=== PATIENT | male | born 1985 | race Caucasian/White ===

== ENCOUNTER 2022-09-17 11:37 | Inpatient (IN) ==
[2022-09-17] MEDS ORDERED: SODIUM CHLORIDE 0.9% 1000ML 1,000 ML IV ONE ×2 (12:00→13:00)
--- NOTE | 2022-09-17 12:03 | Emergency Department Note ---
Impression & Plan Acute hemorrhagic colitis, Anemia, WILMER (acute kidney injury), Acute dehydration ED Provider Note Name: GEMMA BOJORQUEZ Age: 37 Sex: M Arrives Via: Walk-In Informant: Patient ED Provider: Rommel Rollins MD Chief Complaint: Illness Impression: As per impressions above Medical Decision Makin-year-old gentleman without significant past medical history arrives after 2 months of worsening diarrhea and bloody stools. Rapidly worsening to the point where he is now getting lightheaded and tachycardic. He was seen by GI today who advised to come to the emergency room. On examination he has diffuse lower abdominal tenderness palpation does note some worse in the right lower quadrant. He is hypotensive and tachycardic however with laying flat his blood pressure is much improved. He was empirically given some IV fluids with vast improvement in his symptoms but while still tachycardic was given a second liter IV fluids as well. His laboratory work-up reveals he is quite anemic with a hemoglobin of 8 but without significant past medical history and his blood pressure improved we will hold off on transfusion at this time. He has mild leukocytosis without fever. This could be stress versus infectious versus dehydration related. Given the abdominal tenderness palpation a CT was obtained which reveals a diffuse colitis infectious versus inflammatory. Without fevers or other findings I do not feel he is currently septic at this time. I will note that his creatinine is mildly elevated at 1.6 but given the hemorrhagic symptoms I did think that a IV contrast CT was indicated but this is further reason for giving IV fluids. Extensive stool testing was obtained which is negative for COVID and other PCR pathology. He has a positive blood type though we will hold off on transfusion at this time. Prior Medical Record and Triage/Nursing Notes reviewed by Me Additional history obtained from gastroenterology team Differentials:Diverticulosis, AVM, coagulopathy, colitis, inflammatory bowel disease, malignancy, Barb-Gray tear, esophagitis, peptic ulcer disease, variceal bleed, gastritis, epistaxis, fissure, hemorrhoids, as well as other pathologies. Vital Signs: reviewed and remarkable for tachycardia Interventions: Normal saline bolus 2 L IV, Protonix 80 mg IV, Cipro 400 mg IV, Flagyl 500 mg IV Labs:Reviewed and remarkable for mildly elevated WBC, blast cells 2%, hemoglobin 8, platelets 700 Imaging:CT of the abdomen pelvis with IV contrast reveals diffuse colitis as per radiology Consults:Discussed with Dr. Colbert of the pathology department. He feels that the blood smear is consistent with infectious etiology of the abnormalities rather than evidence of leukemia. Discussed with Dr. Yanez of GI who advises hospitalization with IV Cipro Flagyl and close monitoring and they will evaluate further this afternoon. Dr. Nascimento of the [facility] was consulted and he will manage patient further. Plan: Disposition:Hospitalization. Condition: Good History of Present Illness:37-year-old male arrives for evaluation of illness. Patient notes 3 months of diarrhea. It initially started with a sinus infection after cleaning out a rodent and feces infested porch. Patient states he has been feeling very fatigued and exhausted. The last 2 weeks worsening diarrhea and notes some increased blood in it. Notes diarrhea is watery brown but does have blood in it periodically. No large clots of blood noticed. He states he is getting very lightheaded with standing recently. Worse with any exertion better with rest. He was feeling so ill he is been taking Motrin and baby aspi rin last few days. Denies any vomiting blood. Does note some mild diffuse abdominal cramping radiating to RLQ. And exertion makes worse rest makes better. Patient does note unintended weight loss recently as well. Denies any falls, trauma, injuries. Denies any chest pain, shortness of breath, fevers, chills, headache, neck pain, leg swelling, bruising/other bleeding, urinary symptoms or other concerning signs or symptoms. He does note that his urine has been much darker recently. ROS: See above HPI for pertinent positives & negatives. A total of 10 systems reviewed and were otherwise negative. Past Medical History:Healthy no past medical history Past Surgical History:No previous surgeries Family History:Denies any bleeding disorders, Crohn's disease or ulcerative colitis disease Social History:Self-employed, contractor, single parent, no drugs, no alcohol in 5+ years Home Medications:No daily medications Allergies:nkda Vitals:Blood Pressure: 102/64, Pulse 121, RR 20, T 36.6C, O2 100% on RA Physical Exam: GENERAL: Patient is unwell appearing and in mild distress. Dry EYES: pale conjunctiva, unremarkable pupils. ENT: Mucous membranes dry, no nasal congestion. NECK: No masses appreciated, nomeningismus, trachea is midline. RESPIRATORY: No dyspnea. Clear to auscultation and equal bilaterally. No wheeze, no rhonchi. CARDIOVASCULAR: Tachy.No murmurs, rubs, gallops appreciated. GASTROINTESTINAL: Abdomen soft, non-tender, no peritonitis.Bowel sounds positive.No masses appreciated. BACK: No midline tenderness, no CVA tenderness EXTREMITIES: Normal motion all extremities, no cyanosis, no edema. NEUROLOGIC: Alert and oriented, no acute motor or sensory deficits, no focal weakness, cranial nerves grossly intact. SKIN: No rash, no jaundice, no diaphoresis. PSYCH: Appropriate GCS: 15 ED Course: Times/Reassessments: Patient is vastly improved with IV fluids. He is feeling much better he is comfortable and vital signs have improved significantly. He is agreeable to hospitalization. I will note there were multiple repeat evaluations of patient throughout his stay while managing multiple different consultants and discussions of testing/plan Rommel Rollins MD Past Med/Surg History Family History Denies family history of Crohn's disease Colorectal cancer Ulcerative colitis Social History Smoking Status: Never smoker Hx Alcohol Use: No Hx Substance Use: No current occupational status: employed Feels Safe at Home: Yes Allergies Allergies Allergy/AdvReac Type Severity Reaction Status Date / Time No Known Allergies Allergy Verified 09/17/22 16:05 Home Meds Home Medications Medication Instructions Recorded Confirmed aspirin 81 mg tablet,delayed 81 mg PO DAILY 09/17/22 09/17/22 release cholecalciferol (vitamin D3) 125 125 mcg PO DAILY 09/17/22 09/17/22 mcg (5,000 unit) tablet (Vitamin D3) ferrous sulfate 325 mg (65 mg 325 mg PO DAILY 09/17/22 09/17/22 iron) tablet (iron) ibuprofen 200 mg tablet 200 mg PO DAILY 09/17/22 09/17/22 vitamin B complex 1 tab PO DAILY 09/17/22 09/17/22 Results & Data (ED) Vital Signs Vital Signs - 24 hr 09/17/22 11:38 09/17/22 11:46 09/17/22 13:38 Temperature 36.6 C Temperature Source Temporal Artery Scan Pulse Rate 121 H Pulse Rate [Left Finger] 121 H 101 H Pulse Rhythm [Left Finger] Regular Pulse Strength [Left Finger] Normal Respiratory Rate 20 15 Respiratory Effort / Characteristics Non-Labored Spontaneous Respiratory Depth Normal Normal Blood Pressure 102/64 Blood Pressure [Left Arm] 108/63 Blood Pressure Mean 76 Blood Pressure Mean [Left Arm] 78 Pulse Oximetry 100 98 Oxygen Delivery Method Room Air Room Air Sepsis Recent Fever Within 48 Hours No Sepsis New/Unexplained Change in Mental Status No Sepsis Action Taken by Nursing No Action Required 09/17/22 15:40 Temperature Temperature Source Pulse Rate Pulse Rate [Left Finger] 117 H Pulse Rhythm [Left Finger] Regular Pulse Strength [Left Finger] Respiratory Rate 19 Respiratory Effort / Characteristics Non-Labored Respiratory Depth Normal Blood Pressure Blood Pressure [Left Arm] Blood Pressure Mean Blood Pressure Mean [Left Arm] Pulse Oximetry 96 Oxygen Delivery Method Room Air Sepsis Recent Fever Within 48 Hours Sepsis New/Unexplained Change in Mental Status Sepsis Action Taken by Nursing Laboratory Data Result diagrams: 09/17/22 11:57 09/17/22 11:57 Lab Results 09/17/22 09/17/22 09/17/22 Range/Units 11:57 11:57 11:57 WBC 14.25 H (4.8-10.8) K/ul RBC 3.19 L (4.63-6.08) M/uL Hgb 8.2 L (14.0-18.0) g/dl POC Hgb (14.0-18.0) g/dl Hct 25.6 L (40.1-51.0) % POC Hct (42-52) % MCV 80.3 (80.0-100.0) fL MCH 25.7 (25.0-34.0) pg MCHC 32.0 (32.0-36.0) g/dL RDW Std Deviation 41.9 (36.4-46.3) fL RDW Coeff of Cipriano 14.6 H (11.5-14.5) % Plt Count 776 H (130-400) K/uL MPV 8.9 L (9.4-12.4) fL Absolute Nucleated RBC 0.04 H (0-0) K/uL Nucleated RBC % (auto) 0.3 % Neutrophils % (Manual) 66 % Lymphocytes % (Manual) 16 % Monocytes % (Manual) 7 % Eosinophils % (Manual) 4 % Metamyelocytes % (Man) 3 % Myelocytes % (Man) 1 % Promyelocytes % (Man) 1 % Blast Cells % (Manual) 2 % Neutrophils # (Manual) 9.41 H (1.4-6.5) K/uL Lymphocytes # (Manual) 2.28 (1.2-3.4) K/uL Monocytes # (Manual) 1.00 H (0.24-0.82) K/uL Eosinophils # (Manual) 0.57 H (0-0.50) K/uL Metamyelocytes # (Man) 0.43 H (0-0) K/uL Myelocytes # (Manual) 0.14 H (0-0) K/uL Promyelocytes # (Man) 0.14 H (0-0) K/uL Blast Cells # (Man) 0.29 H (0-0) K/uL Blood Smear Review Toxic Vacuolation 1+ Dohle Bodies 1+ Polychromasia 1+ PT 11.4 (9.0-12.0) Seconds INR 1.1 (0.9-1.1) APTT 28.5 (21.0-31.0) Seconds PTT Ratio 1.0 POC Sodium (135-144) mmol/L Sodium 132 L (136-145) mmol/L POC Potassium (3.3-5.0) mmol/L Potassium 4.6 (3.5-5.1) mmol/L POC Chloride (101-112) mmol/L Chloride 98 (98-107) mmol/L Carbon Dioxide 26 (21-32) mmol/L POC Total CO2 (24-31) mmol/L Anion Gap 8 (3-11) POC Anion Gap (16-25) mmol/L POC BUN (7-18) mg/dl BUN 24 H (6-23) mg/dl Creatinine 1.57 H (0.6-1.4) mg/dl POC Creatinine (0.6-1.3) mg/dl Est Cr Clr Drug Dosing 69.1 ml/min Est GFR ( Amer) 64.3 ml/min Est GFR (Non-Af Amer) 55.5 ml/min BUN/Creatinine Ratio 15.3 (10-20) Glucose 106 H (70-99(Fasting)) mg/dl POC Glucose (other) (70-99) mg/dl Calcium 8.1 L (8.5-10.1) mg/dl POC Ioniz Calcium Piper (1.12-1.32) mmol/l Magnesium 1.9 (1.7-2.4) mg/dl Total Bilirubin 0.4 (0.2-1.0) mg/dl Direct Bilirubin 0.1 (0-0.2) mg/dl AST 23 (13-39) U/L ALT 22 (7-52) U/L Alkaline Phosphatase 22 L (34-104) U/L Troponin I High Sens 6.6 (0-20) pg/ml Total Protein 5.7 L (6.0-8.3) gm/dl Albumin 2.5 L (3.4-5.0) gm/dl Stl C. cayetanensis PCR (NotDetected) Stool Rotavirus A PCR (NotDetected) Stl Adenov F 40/41 PCR (NotDetected) Stool Astrovirus (PCR) (NotDetected) Stool Campylobacter PCR (NotDetected) Stl C. diff Tox B Gene (Neg) Stool Cryptosporidium PCR (NotDetected) Stl E.coli Shiga Tox PCR (NotDetected) Stl Enterotoxigenic E PCR (NotDetected) Stool EPEC (PCR) (NotDetected) Stool EAEC (PCR) (NotDetected) Stl E. histolytica PCR (NotDetected) Stool Giardia Lamblia PCR (NotDetected) Stool Salmonella PCR (NotDetected) Stool Sapovirus (PCR) (NotDetected) Stl P. shigelloides PCR (NotDetected) Stl Shigella/EIEC PCR (NotDetected) St Y.enterocolitica PCR (NotDetected) Stool Vibrio (PCR) (NotDetected) Stl Vibrio cholerae PCR (NotDetected) Stl Norovirus GI/GII PCR (NotDetected) Blood Type Antibody Screen 09/17/22 09/17/22 09/17/22 Range/Units 12:03 12:06 Unknown WBC (4.8-10.8) K/ul RBC (4.63-6.08) M/uL Hgb (14.0-18.0) g/dl POC Hgb 8.8 L (14.0-18.0) g/dl Hct (40.1-51.0) % POC Hct 26 L (42-52) % MCV (80.0-100.0) fL MCH (25.0-34.0) pg MCHC (32.0-36.0) g/dL RDW Std Deviation (36.4-46.3) fL RDW Coeff of Cipriano (11.5-14.5) % Plt Count (130-400) K/uL MPV (9.4-12.4) fL Absolute Nucleated RBC (0-0) K/uL Nucleated RBC % (auto) % Neutrophils % (Manual) % Lymphocytes % (Manual) % Monocytes % (Manual) % Eosinophils % (Manual) % Metamyelocytes % (Man) % Myelocytes % (Man) % Promyelocytes % (Man) % Blast Cells % (Manual) % Neutrophils # (Manual) (1.4-6.5) K/uL Lymphocytes # (Manual) (1.2-3.4) K/uL Monocytes # (Manual) (0.24-0.82) K/uL Eosinophils # (Manual) (0-0.50) K/uL Metamyelocytes # (Man) (0-0) K/uL Myelocytes # (Manual) (0-0) K/uL Promyelocytes # (Man) (0-0) K/uL Blast Cells # (Man) (0-0) K/uL Blood Smear Review Toxic Vacuolation Dohle Bodies Polychromasia PT (9.0-12.0) Seconds INR (0.9-1.1) APTT (21.0-31.0) Seconds PTT Ratio POC Sodium 132 L (135-144) mmol/L Sodium (136-145) mmol/L POC Potassium 4.5 (3.3-5.0) mmol/L Potassium (3.5-5.1) mmol/L POC Chloride 95 L (101-112) mmol/L Chloride (98-107) mmol/L Carbon Dioxide (21-32) mmol/L POC Total CO2 26 (24-31) mmol/L Anion Gap (3-11) POC Anion Gap 17.0 (16-25) mmol/L POC BUN 25 H (7-18) mg/dl BUN (6-23) mg/dl Creatinine (0.6-1.4) mg/dl POC Creatinine 1.9 H (0.6-1.3) mg/dl Est Cr Clr Drug Dosing ml/min Est GFR ( Amer) ml/min Est GFR (Non-Af Amer) ml/min BUN/Creatinine Ratio (10-20) Glucose (70-99(Fasting)) mg/dl POC Glucose (other) 107 H (70-99) mg/dl Calcium (8.5-10.1) mg/dl POC Ioniz Calcium Piper 1.16 (1.12-1.32) mmol/l Magnesium (1.7-2.4) mg/dl Total Bilirubin (0.2-1.0) mg/dl Direct Bilirubin (0-0.2) mg/dl AST (13-39) U/L ALT (7-52) U/L Alkaline Phosphatase (34-104) U/L Troponin I High Sens (0-20) pg/ml Total Protein (6.0-8.3) gm/dl Albumin (3.4-5.0) gm/dl Stl C. cayetanensis PCR Not Detected (NotDetected) Stool Rotavirus A PCR Not Detected (NotDetected) Stl Adenov F 40/41 PCR Not Detected (NotDetected) Stool Astrovirus (PCR) Not Detected (NotDetected) Stool Campylobacter PCR Not Detected (NotDetected) Stl C. diff Tox B Gene Negative Cdiff Gene (Neg) Stool Cryptosporidium PCR Not Detected (NotDetected) Stl E.coli Shiga Tox PCR Not Detected (NotDetected) Stl Enterotoxigenic E PCR Not Detected (NotDetected) Stool EPEC (PCR) Not Detected (NotDetected) Stool EAEC (PCR) Not Detected (NotDetected) Stl E. histolytica PCR Not Detected (NotDetected) Stool Giardia Lamblia PCR Not Detected (NotDetected) Stool Salmonella PCR Not Detected (NotDetected) Stool Sapovirus (PCR) Not Detected (NotDetected) Stl P. shigelloides PCR Not Detected (NotDetected) Stl Shigella/EIEC PCR Not Detected (NotDetected) St Y.enterocolitica PCR Not Detected (NotDetected) Stool Vibrio (PCR) Not Detected (NotDetected) Stl Vibrio cholerae PCR Not Detected (NotDetected) Stl Norovirus GI/GII PCR Not Detected (NotDetected) Blood Type A Positive Antibody Screen NEGATIVE Administered Medications Ciprofloxacin (Cipro / D5w) 400 mg in 200 mls @ 100 mls/hr IV NOW STA; Protocol Stop: 09/17/22 16:53 Last Admin: 09/17/22 15:09 Dose: 100 mls/hr Documented By: KV Discontinued Medications Sodium Chloride (Nss 1000ml) 1,000 mls @ 999 mls/hr IV .Q1H1M ONE Stop: 09/17/22 13:00 Last Infusion: 09/17/22 13:21 Dose: 0 mls/hr Documented By: Admin: 09/17/22 12:11 Dose: 999 mls/hr Documented By: KV Pantoprazole Sodium 80 mg/ (Dextrose) 100 mls @ 400 mls/hr IV ONE STA Stop: 09/17/22 13:04 Last Infusion: 09/17/22 14:10 Dose: 0 mls/hr Documented By: Admin: 09/17/22 13:22 Dose: 400 mls/hr Documented By: KV Sodium Chloride (Nss 1000ml) 1,000 mls @ 999 mls/hr IV .Q1H1M ONE Stop: 09/17/22 14:00 Last Infusion: 09/17/22 13:22 Dose: 0 mls/hr Documented By: Admin: 09/17/22 13:21 Dose: 999 mls/hr Documented By: KV Metronidazole (Flagyl) 500 mg in 100 mls @ 100 mls/hr IV NOW STA Stop: 09/17/22 15:53 Last Admin: 09/17/22 15:33 Dose: 100 mls/hr Documented By: KV Ioversol (Optiray 350 100ml) 88 ml IV ONCE ONE Stop: 09/17/22 13:07 Last Admin: 09/17/22 13:07 Dose: 88 ml Documented By: [facility] Imaging Data Radiologist's Impression: Abdomen/Pelvis CT 09/17/22 12:[address] WITH IV CONTRAST CT DOSE: 310.01 mGy.cm HISTORY: Acute periumbilical and right lower quadrant abdominal pain with rectal bleeding RLQ pain, rectal bleeding TECHNIQUE: Multiaxial CT images of the abdomen and pelvis were performed following the IV administration of 88 cc of Optiray, A dose lowering technique was utilized adhering to the principles of ALARA. COMPARISON STUDY: None. FINDINGS: Limited exam secondary to paucity of Intra-abdominal fat. Clear lung bases. No pneumatosis or pneumoperitoneum. Unremarkable spleen, pancreas and adrenal glands. Mildly contracted gallbladder. Mild periportal edema may be secondary to overhydration. The liver is prominent in size. Patency of the hepatic and portal veins. Unremarkable right kidney. There are 2 nonobstructing calculi of the left kidney measuring up to 3 mm. No ureteral calculi or hydronephrosis. Unremarkable urinary bladder with mild wall thickening. Prostate is upper limits of normal in size with central calcifications. Aorta and IVC are unremarkable. No lymphadenopathy identified. No bowel obstruction. There is wall thickening with mucosal hyperemia involving the entirety of the colon and rectum. There is associated pericolonic inflammation along with intraluminal air-fluid levels. There is a punctate calcification noted within the dependent cecum. The appendix is not definitively seen. Prominent lymph nodes of the right lower quadrant mesentery. Mesenteric edema with trace ascites. Mild generalized body wall edema. No acute fracture. IMPRESSION: 1. Limited exam without the use of enteric contrast. 2. Diffuse wall thickening throughout the colon and rectum compatible with a nonspecific proctocolitis, likely infectious or inflammatory. Air-fluid levels suggests associated diarrheal illness 3. The appendix is not definitively seen. 4. Prominent lymph nodes of the right lower quadrant mesentery are favored to be reactive. ACT 112: Negative or not required by law. The above report was generated using voice recognition software. It may contain grammatical, syntax or spelling errors. Electronically signed by: Enio Villa M.D. 09/17/2022 1:37 PM Discharge Plan Visit Data Chief Complaint: Referred by Doctor Stated Complaint: [facility]ALS ED Provider: Rommel Rollins Discharge Problem: Acute hemorrhagic colitis, Anemia, WILMER (acute kidney injury), Acute dehydration Forms Stand Alone Forms: [employer] Prescriptions Prescriptions: No Action aspirin 81 mg Tablet,Delayed Release (Dr/Ec) 81 mg PO DAILY ferrous sulfate [iron] 325 mg (65 mg iron) Tablet 325 mg PO DAILY ibuprofen 200 mg Tablet 200 mg PO DAILY vitamin B complex Tablet 1 tab PO DAILY cholecalciferol (vitamin D3) [Vitamin D3] 125 mcg (5,000 unit) Tablet 125 mcg PO DAILY Referrals Referrals: Unknown,Unknown [Primary Care Provider] -
[2022-09-17 12:14] LABS: Hematocrit (blood only) 25.6 % (40.1-51.0); Hemoglobin 8.2 g/dl (14.0-18.0); Mean Corpuscular Hemoglobin 25.7 pg (25.0-34.0); Mean Corpuscular Volume 80.3 fL (80.0-100.0); Mean Platelet Volume 8.9 fL (9.4-12.4); Nucleated RBC # (auto) 0.04 K/uL (0-0); Nucleated RBC % (auto) 0.3 %; Platelet Count 776 K/uL (130-400); RDW Coefficient of Variation 14.6 % (11.5-14.5); RDW Standard Deviation 41.9 fL (36.4-46.3); Red Blood Count 3.19 M/uL (4.63-6.08); White Blood Count 14.25 K/ul (4.8-10.8)
[2022-09-17 12:18] LABS: iSTAT Creatinine 1.9 mg/dl (0.6-1.3); iSTAT Hemoglobin 8.8 g/dl (14.0-18.0); iSTAT Ionized Calcium 1.16 mmol/l (1.12-1.32); iSTAT Potassium 4.5 mmol/L (3.3-5.0)
[2022-09-17 12:22] LABS: INR 1.1 (0.9-1.1); Partial Thromboplastin Time 28.5 Seconds (21.0-31.0); Prothrombin Time 11.4 Seconds (9.0-12.0)
[2022-09-17 12:39] LABS: Albumin Level 2.5 gm/dl (3.4-5.0); BUN Creatinine Ratio 15.3 (10-20); Bilirubin Direct 0.1 mg/dl (0-0.2); Bilirubin,Total 0.4 mg/dl (0.2-1.0); Calcium 8.1 mg/dl (8.5-10.1); Creatinine Clr Calc Pharmacy 69.1 ml/min; Est GFR (African American) 64.3 ml/min; Est GFR (Non-African American) 55.5 ml/min; Magnesium 1.9 mg/dl (1.7-2.4); Potassium 4.6 mmol/L (3.5-5.1); Total Protein 5.7 gm/dl (6.0-8.3)
[2022-09-17 12:42] LABS: Troponin I High Sensitivity 6.6 pg/ml (0-20)
[2022-09-17] MEDS ORDERED: PANTOprazole 80 MG in DEXTROSE 5% 100 ML IV STA (12:50)
[2022-09-17] MEDS ORDERED: OPTIRAY 350 100ml IV ONE (13:06)
[2022-09-17 13:09] LABS: Blast # (manual) 0.29 K/uL (0-0); Blast Cells % (manual) 2 %; Dohle Bodies 1+; Eosinophils # (manual) 0.57 K/uL (0-0.50); Eosinophils % (manual) 4 %; Lymphocytes # (manual) 2.28 K/uL (1.2-3.4); Lymphocytes % (manual) 16 %; Metamyelocytes # (manual) 0.43 K/uL (0-0); Metamyelocytes % (manual) 3 %; Monocytes % (manual) 7 %; Myelocytes # (manual) 0.14 K/uL (0-0); Myelocytes % (manual) 1 %; Neutrophils # (manual) 9.41 K/uL (1.4-6.5); Neutrophils % (manual) 66 %; Polychromasia 1+; Promyelocytes # (manual) 0.14 K/uL (0-0); Promyelocytes % (manual) 1 %; Toxic Vacuolation 1+
--- NOTE | 2022-09-17 13:40 | CT Scan Report ---
ABDOMEN AND PELVIS CT WITH IV CONTRAST CT DOSE: 310.01 mGy.cm HISTORY: Acute periumbilical and right lower quadrant abdominal pain with rectal bleeding RLQ pain, rectal bleeding TECHNIQUE: Multiaxial CT images of the abdomen and pelvis were performed following the IV administrat ion of 88 cc of Optiray, A dose lowering technique was utilized adhering to the principles of ALARA. COMPARISON STUDY: None. FINDINGS: Limited exam secondary to paucity of Intra-abdominal fat. Clear lung bases. No pneumatosis or pneumoperitoneum. Unremarkable spleen, pancreas and adrenal glands. Mildly contracted gallbladder. Mild periportal edema may be secondary to overhydration. The liver is prominent in size. Patency of the hepatic and portal veins. Unremarkable right kidney. There are 2 nonobstructing calculi of the left kidney measuring up to 3 mm . No ureteral calculi or hydronephrosis. Unremarkable urinary bladder with mild wall thickening. Pros marte is upper limits of normal in size with central calcifications. Aorta and IVC are unremarkable. N o lymphadenopathy identified. No bowel obstruction. There is wall thickening with mucosal hyperemia involving the entirety of the c olon and rectum. There is associated pericolonic inflammation along with intraluminal air-fluid level s. There is a punctate calcification noted within the dependent cecum. The appendix is not definitive ly seen. Prominent lymph nodes of the right lower quadrant mesentery. Mesenteric edema with trace asc ites. Mild generalized body wall edema. No acute fracture. IMPRESSION: 1. Limited exam without the use of enteric contrast. 2. Diffuse wall thickening throughout the colon and rectum compatible with a nonspecific proctocoliti s, likely infectious or inflammatory. Air-fluid levels suggests associated diarrheal illness 3. The appendix is not definitively seen. 4. Prominent lymph nodes of the right lower quadrant mesentery are favored to be reactive. ACT 112: Negative or not required by law. The above report was generated using voice recognition software. It may contain grammatical, syntax o r spelling errors. Electronically signed by: Enio Villa M.D. 09/17/2022 1:37 PM
[2022-09-17] MEDS ORDERED: metroNIDAZOLE 500 MG/100 ML BAG IV STA (14:54)
[2022-09-17] MEDS ORDERED: CIPROFLOXACIN / D5W 400 MG/200 ML BAG IV STA (14:54)
[2022-09-17 15:11] LABS: Adenovirus F 40/41 PCR Not Detected (NotDetected); Astrovirus PCR Not Detected (NotDetected); Campylobacter PCR Not Detected (NotDetected); Cryptosporidium PCR Not Detected (NotDetected); Cyclospora cayetanensis PCR Not Detected (NotDetected); Entamoeba histolytica PCR Not Detected (NotDetected); Enteroaggregative E.coli(EAEC) Not Detected (NotDetected); Enteropathogenic E.coli (EPEC) Not Detected (NotDetected); Enterotoxigenic E.coli (ETEC) Not Detected (NotDetected); Giardia lamblia PCR Not Detected (NotDetected); Norovirus GI/GII PCR Not Detected (NotDetected); Plesiomonas shigelloides PCR Not Detected (NotDetected); Rotavirus A PCR Not Detected (NotDetected); Salmonella PCR Not Detected (NotDetected); Sapovirus PCR Not Detected (NotDetected); Shiga-like Toxin E.coli (STEC) Not Detected (NotDetected); Shigella/Enteroinvasive E.coli Not Detected (NotDetected); Vibrio cholerae PCR Not Detected (NotDetected); Vibrio species PCR Not Detected (NotDetected); Yersinia enterocolitica PCR Not Detected (NotDetected)
--- NOTE | 2022-09-17 15:21 | History & Physical Report ---
Date of Service September 17, 2022 Assessment & Plan (1) Colitis: Plan: Patient is pancolitis with air-fluid level seen on CT scan suggesting infectious etiology. Initial stool PCR is negative. GI consultation to see the patient recommended Cipro and Flagyl at this time. Patient be continued be hydrated with fluids after 2 L volume resuscitation in the ER. Certainly concern for inflammatory bowel disease however the picture on CT does raise some more concerned about this being infectious etiology (2) Anemia: Plan: Patient is anemic is near microcytic iron B12 folic acid will be checked his stool is heme positive that would be expected with inflammatory colitis Pathology commented that there were few blasts seen in his peripheral smear subsequently pathology informed emergency medicine that they feel this is more reactionary than a bone marrow related issue subsequent we will perform a differential in the morning to continue to survey for abnormal cells (3) Acute kidney injury: Plan: Patient has elevation of BUN/creatinine which would seem to be higher than baseline for 37-year-old male subsequently we will hydrate him and recheck in the morning. Watching his magnesium and potassium levels (4) Moderate protein malnutrition: Plan: This seems to be a prolonged illness and likely related to his poor nutritional status Plan DVT prevention SCDs chemoprophylaxis contraindicated with anemia and hematochezia History of Present Illness Primary Care Provider: Unknown Unknown 37-year-old male arrives with 3 months of diarrhea. It initially started with a sinus infection after cleaning out a rodent and feces infested porch. Patient states he has been feeling very fatigued and exhausted. The last 2 weeks worsening diarrhea and notes some increased blood in it. Patient took some [id number]-[id number] antiparasitic medications which she got from the Internet including 1 that he describes as nitrousoxizide He describes taking aspirin and Motrin over the last day or 2 which helped significantly with his abdominal pain. He denies any epigastric discomfort. Denies any vomiting blood. Most of his abdominal pain in his bilateral lower quadrants worse on the left. Patient does note unintended weight loss recently as well. He has had poor appetite but has been trying to keep up with oral intake of liquids No family history of inflammatory bowel disease Allergies Allergy/AdvReac Type Severity Reaction Status Date / Time [id number] Allergy Unknown Uncoded 09/17/22 10:16 [id number] Allergy Unknown Uncoded 09/17/22 10:16 N Allergy Unknown Uncoded 09/17/22 10:16 Home Medications Medication Instructions Recorded Confirmed Type None (Patient States No Home Meds) ##0 04/20/06 09/17/22 History Past Med/Surg History Family History Denies family history of Crohn's disease Colorectal cancer Ulcerative colitis Social History Smoking Status: Never smoker Hx Alcohol Use: No Hx Substance Use: No current occupational status: employed Feels Safe at Home: Yes Review of Systems Review of Systems: Moderate distress and fatigue no headache, no visual changes no speech or swallowing issues no chest pain, pressure or palpitations no shortness of breath, cough or wheezes Lower quadrant abdominal pain which is reproducible by exam and persistent diarrhea bloody at times no dysuria, hematuria or frequency no focal joint pain or swelling no back pain, CVA tenderness or radicular pain no bruising, bleeding or rashes no focal signs of weakness or numbness or altered sensation no complaints of anxiety or depression.. Physical Exam Physical Exam: The patient appeared well nourished and normally developed. Vital signs as documented. Head exam is normocephalic atraumatic Neck is without JVD, thyromegaly, or carotid bruits. Lungs are clear to auscultation, no focal loss of breath sounds Cardiac exam, Rhythm is regular.. No murmurs, rubs or gallops. Abdominal exam reveals hyper active bowel sounds, soft mild bilateral lower quadrant tenderness and tympany Extremities are nonedematous and both pedal pulses are present Neurologic exam is alert and oriented, no focal loss of strength or sensation Skin is without bruises or rashes Psychologically is without concerns for anxiety or depression.. Results & Data Results & Data ([facility]) Vital Signs (Past 12 Hours) Vital Signs Temp Pulse Pulse Resp BP BP Pulse Ox 09/17/22 13:38 101 H 15 108/63 98 09/17/22 11:46 121 H 09/17/22 11:38 97.9 F 121 H 20 102/64 100 O2 Del Method 09/17/22 13:38 Room Air 09/17/22 11:46 09/17/22 11:38 Room Air Code Status & VTE Plan VTE Prophylaxis Plan VTE Prophylaxis will be ordered: Yes PG Care Time/CCT Total # of Minutes Spent Total Time Spent with Patient: Total time spent is greater than 50% in coordination of care (as documented) at patient's floor/unit and/or counseling patient: Coding Level of Care Code INT OBSERVATION CARE 70M LVL 3 Diagnoses Colitis K52.9 Anemia D64.9 Acute kidney injury N17.9 Moderate protein malnutrition E44.0
--- NOTE | 2022-09-17 15:46 | Gastrointestinal Consultation ---
Date of Consultation September 17, 2022 Assessment & Plan (1) Bright red rectal bleeding: (2) Abdominal pain, acute, right lower quadrant: Plan Concern for IBD given CT findings and labs. -Can continue IV Cipro & Flagyl -Solumedrol 40 mg BID -Obtain CRP -Will re-evaluate tomorrow regarding timing of colonoscopy -O&P testing -Clear liquid diet Supervising Physician Co-Signing Physician Notes Agree with ARSENIO Sage as above Abd: Soft, NT, ND, +BS Continue Cipro 400 mg IV BID and Flagyl 500 mg IV TID Recommend Solu-medrol 40 mg IV BID Continue current therapy and supportive care History of Present Illness History of Present Illness Patient is a 37 yo male who presented to the [facility] outpatient clinic today for a consultation of abdominal pain and diarrhea x 3 months. He denies significant PMH otherwise. 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 He notes he then developed a "sinus infection" that quickly progressed into abdominal pain and diarrhea. He took an OTC antiparasitic that did not help. He reported ongoing loose stool, mucous and rectal bleeding. He developed focal RLQ abdominal pain that he felt was sharp and cramping. He notes some urgency. He has approximately 6 bowel movements daily. He notes 13 lb weight loss in this time frame. He notes no pertinent family history. No significant NSAID use. He notes minimal diet. Due to the worsening symptoms, he was referred to the [facility] ED by Carli PANDYA. In the ED, he was noted to have microcytic anemia. H/H 8.2/25.6. Cr 1.57. WBC 14,250. Platelets 776. C diff and biofire panel negative. No CRP available. CT scan of the abdomen/pelvis that showed wall thickening of the colon/rectum concerning for an infectious vs inflammatory process. He has prominent lymph nodes noted in the RLQ. He has been admitted to the hospital and is on Cipro & Flagyl. Allergies Allergy/AdvReac Type Severity Reaction Status Date / Time No Known Allergies Allergy Verified 09/17/22 16:05 Home Medications Medication Instructions Recorded Confirmed Type aspirin 81 mg tablet,delayed 81 mg PO DAILY 09/17/22 09/17/22 History release cholecalciferol (vitamin D3) 125 125 mcg PO DAILY 09/17/22 09/17/22 History mcg (5,000 unit) tablet (Vitamin D3) ferrous sulfate 325 mg (65 mg 325 mg PO DAILY 09/17/22 09/17/22 History iron) tablet (iron) ibuprofen 200 mg tablet 200 mg PO DAILY 09/17/22 09/17/22 History vitamin B complex 1 tab PO DAILY 09/17/22 09/17/22 History Patient History Family History Denies family history of Crohn's disease Colorectal cancer Ulcerative colitis Social History Smoking Status: Never smoker Hx Alcohol Use: No Hx Substance Use: No current occupational status: employed Feels Safe at Home: Yes Review of Systems Constitutional: no fever and no chills Respiratory: no cough and no dyspnea Cardiovascular: no chest pain Gastrointestinal: + abdominal pain, + diarrhea/loose stools and + blood in stools Integumentary: no problem reported Psychiatric: no problem reported Hematologic / Lymphatic: + unexplained weight loss Physical Exam Constitutional: well developed Respiratory: normal respiratory effort Cardiovascular: Rate/Rhythm: regular rate Gastrointestinal (Abdomen): normal bowel sounds, soft, nontender, no hepatosplenomegaly Musculoskeletal: Head/Neck/Chest: normocephalic Psychiatric: Orientation: alert and oriented x 3 Results & Data ([facility]) Vital Signs (Past 12 Hours) Vital Signs Temp Pulse Pulse Resp BP BP Pulse Ox 09/17/22 15:40 117 H 19 96 09/17/22 13:38 101 H 15 108/63 98 09/17/22 11:46 121 H 09/17/22 11:38 36.6 C 121 H 20 102/64 100 O2 Del Method 09/17/22 15:40 Room Air 09/17/22 13:38 Room Air 09/17/22 11:46 09/17/22 11:38 Room Air PG Care Time/CCT Total # of Minutes Spent Total Time Spent with Patient: Total time spent is greater than 50% in coordination of care (as documented) at patient's floor/unit and/or counseling patient: Coding Level of Care Code 55952 Office/OBS Consult Lvl 4 Diagnoses Bright red rectal bleeding K62.5 Abdominal pain, acute, right lower quadrant R10.31
[2022-09-17] MEDS ORDERED: KETOROLAC TROMETHAMINE 15 MG/ML VIAL IV PRN (17:30)
[2022-09-17] MEDS ORDERED: ONDANSETRON INJ 2 MG/ML 2 ML VIAL IV PRN (17:30)
[2022-09-17] MEDS ORDERED: oxyCODONE HCL IR 5 MG TAB (IMMEDIATE RELEASE) PO PRN (17:30)
[2022-09-17] MEDS ORDERED: HYDROCORTISONE HC 2.5% CRM 30GM TUBE EXT PRN (17:30)
[2022-09-17] MEDS ORDERED: ACETAMINOPHEN 500 MG TAB PO PRN (17:30)
[2022-09-17] MEDS ORDERED: LOPERAMIDE HCL 2 MG CAP PO PRN (17:30)
[2022-09-17] MEDS ORDERED: MoRPHine SULFATE 2 MG/ML CARP IV PRN (17:30)
[2022-09-17] MEDS: POTASSIUM CHLORIDE 20 MEQ in SODIUM CHLORIDE 0.9% 1000ML 1,000 ML IV SCH (20:23)
[2022-09-17] MEDS: PANTOprazole 40 MG TAB PO SCH (20:43)
[2022-09-17] MEDS: methylPREDNISolone 40 MG in SYRINGE 0 ML IV SCH (20:44)
[2022-09-17] MEDS: metroNIDAZOLE 500 MG/100 ML BAG IV SCH (20:44)
[2022-09-17] MEDS: CIPROFLOXACIN / D5W 400 MG/200 ML BAG IV SCH (20:44)
[2022-09-17] MEDS: BUTT PASTE (ZINC OXIDE 16%) 171 APPLN/57 GM JAR EXT SCH (20:45)
[2022-09-17] MEDS ORDERED: PANTOprazole 40 MG in SYRINGE 0 ML IV SCH (21:00)
[2022-09-18] MEDS: BUTT PASTE (ZINC OXIDE 16%) 171 APPLN/57 GM JAR EXT SCH ×5 (00:15→23:39)
[2022-09-18] MEDS: metroNIDAZOLE 500 MG/100 ML BAG IV SCH ×3 (02:53→18:43)
[2022-09-18 03:28] LABS: Appearance Urine Clear (Clear); Bacteria Urine Automated Negative (Negative); Bilirubin Urine Negative (Negative); Blood Urine Negative (Negative); Color Urine Yellow; Epithelial Cell Urine Auto 0-5 /lpf (0-5); Glucose Urine UA Negative (Negative); Ketones Urine Negative (Negative); Leukocyte Esterase Urine Negative (Negative); Nitrite Urine Negative (Negative); Protein Urine Trace (Negative); RBC Urine Automated 0-4 /hpf (0-4); Specific Gravity Urine 1.015 (1.000-1.030); Urobilinogen Urine Negative (Negative); pH Urine 5.5 (4.5-7.5)
[2022-09-18] MEDS: CIPROFLOXACIN / D5W 400 MG/200 ML BAG IV SCH ×2 (05:48→18:51)
[2022-09-18 07:00] LABS: Anion Gap 7 (3-11); BUN Creatinine Ratio 14.8 (10-20); Blood Urea Nitrogen 16 mg/dl (6-23); Calcium 7.8 mg/dl (8.5-10.1); Carbon Dioxide 25 mmol/L (21-32); Chloride 102 mmol/L (98-107); Creatinine Clr Calc Pharmacy 100.4 ml/min; Est GFR (African American) 101.1 ml/min; Est GFR (Non-African American) 87.2 ml/min; Glucose 137 mg/dl (70-99(Fasting)); Potassium 4.6 mmol/L (3.5-5.1); Sodium 134 mmol/L (136-145)
[2022-09-18 07:03] LABS: Basophils # (auto) 0.12 K/uL (0-0.2); Basophils % (auto) 0.7 %; Dohle Bodies 1+; Eosinophils # (auto) 0.07 K/uL (0-0.50); Eosinophils % (auto) 0.4 %; Hematocrit (blood only) 25.2 % (40.1-51.0); Hemoglobin 8.1 g/dl (14.0-18.0); Immature Granulocytes # (auto) 0.77 K/uL (0.00-0.02); Immature Granulocytes % (auto) 4.6 %; Lymphocytes # (auto) 0.93 K/uL (1.2-3.4); Lymphocytes % (auto) 5.6 %; Mean Corpuscular Hemoglobin 25.9 pg (25.0-34.0); Mean Corpuscular Hgb Conc 32.1 g/dL (32.0-36.0); Mean Corpuscular Volume 80.5 fL (80.0-100.0); Mean Platelet Volume 8.9 fL (9.4-12.4); Monocytes # (auto) 0.82 K/uL (0.24-0.82); Monocytes % (auto) 4.9 %; Neutrophils # (auto) 14.02 K/uL (1.4-6.5); Neutrophils % (auto) 83.8 %; Platelet Count 818 K/uL (130-400); Polychromasia 1+; RDW Coefficient of Variation 14.6 % (11.5-14.5); Red Blood Count 3.13 M/uL (4.63-6.08); White Blood Count 16.73 K/ul (4.8-10.8)
[2022-09-18 07:08] LABS: Iron < 10 mcg/dl (35-175); Magnesium 1.9 mg/dl (1.7-2.4)
--- NOTE | 2022-09-18 09:28 | Gastroenterology Progress Note ---
Date of Service September 18, 2022 Assessment & Plan (1) Chronic diarrhea: (2) Unintentional weight loss: (3) Anemia: (4) Colitis: Plan: Most likely Ulcerative colitis Will continue Solu-Medrol 40 mg IV BID at present Continue Cipro/Flagyl therapy for 5 days Continue clear liquid diet, but can advance to low fiber diet as tolerated Await further stool studies He will need an outpatient colonoscopy in the next few weeks, but will not do this at present to allow for some mucosal healing I will follow his clinical course and make further recommendations as needed. Admission and Anticipated Discharge Date Admission Date: September 17, 2022 Subjective He is, "feeling a little better today." He is sitting up in bed eating a clear liquid breakfast. He states that he diarrhea has decreased slightly. He does still complain of lower mid abdominal pain, rated at 3/10 in intensity, but improved since his admission. He is convinced that he has a parasitic infection, however, his stool studies have been negative thusfar, and his clinical presentation is consistent with Ulcerative colitis. I did have a long discussion with him about UC, and the chronicity of this illness, but that we would have a better idea following a colonoscopy in the coming weeks. He denies any fevers, chills, nausea or vomiting at this time. He has no further complaints. Review of Systems Review of Systems: All systems reviewed & are unremarkable except as noted in Subjective Physical Exam Constitutional: WD/WN, vitals as above Respiratory: normal respiratory effort, lungs clear to auscultation Cardiovascular: RRR, no murmur, no edema Gastrointestinal (Abdomen): normal bowel sounds, soft, nontender, no hepatosplenomegaly Results & Data Results & Data ([facility]) Vital Signs (Past 12 Hours) Vital Signs Temp Pulse Resp BP Pulse Ox O2 Del Method 09/18/22 07:32 36.9 C 102 H 16 119/104 H 99 Room Air 09/17/22 21:29 37.5 C 77 18 117/52 L 93 Room Air PG Care Time/CCT Total # of Minutes Spent Total Time Spent with Patient: Total time spent is greater than 50% in coordination of care (as documented) at patient's floor/unit and/or counseling patient: Coding Level of Care Code None Diagnoses Chronic diarrhea K52.9 Unintentional weight loss R63.4 Anemia D64.9 Colitis K52.9
[2022-09-18] MEDS: methylPREDNISolone 40 MG in SYRINGE 0 ML IV SCH ×2 (09:52→21:17)
[2022-09-18] MEDS: PANTOprazole 40 MG TAB PO SCH ×2 (09:52→21:16)
[2022-09-18] MEDS: POTASSIUM CHLORIDE 20 MEQ in SODIUM CHLORIDE 0.9% 1000ML 1,000 ML IV SCH (15:10)
[2022-09-18 17:37] LABS: Vitamin B12 > 1500 pg/ml (180-914)
--- NOTE | 2022-09-18 21:51 | Hospitalist Progress Note ---
Date of Service September 18, 2022 Assessment & Plan (1) Colitis: Plan: Patient is pancolitis with air-fluid level seen on CT scan suggesting infectious etiology. Initial stool PCR is negative. GI consultation to see the patient recommended Cipro and Flagyl at this time. Patient be continued be hydrated with fluids after 2 L volume resuscitation in the ER. Certainly concern for inflammatory bowel disease however the picture on CT does raise some more concerned about this being infectious etiology. Patient appears to be doing better on the steroids. will continue to monitor. (2) Anemia: Plan: Patient is anemic is near microcytic iron B12 folic acid will be checked his stool is heme positive that would be expected with inflammatory colitis Pathology commented that there were few blasts seen in his peripheral smear subsequently pathology informed emergency medicine that they feel this is more reactionary than a bone marrow related issue subsequent we will perform a differential in the morning to continue to survey for abnormal cells (3) Acute kidney injury: Plan: Patient has elevation of BUN/creatinine which would seem to be higher than baseline for 37-year-old male subsequently we will hydrate him and recheck in the morning. Watching his magnesium and potassium levels (4) Moderate protein malnutrition: Plan: This seems to be a prolonged illness and likely related to his poor nutritional status Plan DVT prevention SCDs chemoprophylaxis contraindicated with anemia and hematochezia Admission and Anticipated Discharge Date Admission Date: September 18, 2022 Subjective 37 yo male reports having more gas today. Reports having less stools today. Review of Systems Review of Systems: All systems reviewed & are unremarkable except as noted in HPI & below Physical Exam Physical Exam: The patient appeared well nourished and normally developed. Vital signs as documented. Head exam is normocephalic atraumatic Neck is without JVD, thyromegaly, or carotid bruits. Lungs are clear to auscultation, no focal loss of breath sounds Cardiac exam, Rhythm is regular.. No murmurs, rubs or gallops. Abdominal exam reveals hyper active bowel sounds, soft mild bilateral lower quadrant tenderness and tympany Extremities are nonedematous and both pedal pulses are present Neurologic exam is alert and oriented, no focal loss of strength or sensation Skin is without bruises or rashes Psychologically is without concerns for anxiety or depression. Results & Data Results & Data ([facility]) Vital Signs (Past 12 Hours) Vital Signs Temp Pulse Resp BP Pulse Ox O2 Del Method 09/18/22 15:21 84 96/62 L 09/18/22 14:50 36.6 C 98 H 16 96/51 L 100 Room Air PG Care Time/CCT Total # of Minutes Spent Total Time Spent with Patient: Total time spent is greater than 50% in coordination of care (as documented) at patient's floor/unit and/or counseling patient: Coding Level of Care Code 54453 Subseq Hosp Care Lvl 2 Diagnoses Colitis K52.9 Anemia D64.9 Acute kidney injury N17.9 Moderate protein malnutrition E44.0 Time Spent (min) 25
[2022-09-19] MEDS: metroNIDAZOLE 500 MG/100 ML BAG IV SCH ×2 (03:08→12:12)
[2022-09-19] MEDS: BUTT PASTE (ZINC OXIDE 16%) 171 APPLN/57 GM JAR EXT SCH ×2 (05:11→12:13)
[2022-09-19 06:48] LABS: Hematocrit (blood only) 22.5 % (40.1-51.0); Hemoglobin 7.2 g/dl (14.0-18.0); Mean Corpuscular Hemoglobin 25.7 pg (25.0-34.0); Mean Corpuscular Volume 80.4 fL (80.0-100.0); Nucleated RBC # (auto) 0.03 K/uL (0-0); Nucleated RBC % (auto) 0.3 %; Platelet Count 706 K/uL (130-400); RDW Coefficient of Variation 14.7 % (11.5-14.5); RDW Standard Deviation 42.9 fL (36.4-46.3); White Blood Count 11.83 K/ul (4.8-10.8)
[2022-09-19 07:19] LABS: BUN Creatinine Ratio 14.2 (10-20); Calcium 7.7 mg/dl (8.5-10.1); Creatinine Clr Calc Pharmacy 102.3 ml/min; Est GFR (African American) 103.4 ml/min; Est GFR (Non-African American) 89.2 ml/min; Potassium 4.8 mmol/L (3.5-5.1)
[2022-09-19 07:28] LABS: Dohle Bodies 1+; Eosinophils # (manual) 0.12 K/uL (0-0.50); Eosinophils % (manual) 1 %; Lymphocytes # (manual) 0.24 K/uL (1.2-3.4); Lymphocytes % (manual) 2 %; Monocytes # (manual) 0.35 K/uL (0.24-0.82); Monocytes % (manual) 3 %; Myelocytes # (manual) 0.24 K/uL (0-0); Myelocytes % (manual) 2 %; Neutrophils % (manual) 93 %; Polychromasia 1+
[2022-09-19] MEDS: CIPROFLOXACIN / D5W 400 MG/200 ML BAG IV SCH (08:34)
[2022-09-19] MEDS: methylPREDNISolone 40 MG in SYRINGE 0 ML IV SCH (08:35)
[2022-09-19] MEDS: PANTOprazole 40 MG TAB PO SCH (08:35)
--- NOTE | 2022-09-19 12:35 | Gastroenterology Progress Note ---
Date of Service September 19, 2022 Assessment & Plan (1) Chronic diarrhea: (2) Unintentional weight loss: (3) Anemia: (4) Colitis: Plan: Recommend Prednisone Taper over 8 weeks. Start Prednisone 40 mg by mouth daily for 1 week, then 35 mg by mouth daily for 1 week, then 30 mg by mouth daily for 1 week then decrease by 5 mg weekly. Recommend F/U in our office at the end of next week Continue Cipro/Flagyl therapy for 5 days Await further stool studies He will need an outpatient colonoscopy in the next few weeks, but will not do this at present to allow for some mucosal healing I will follow his clinical course and make further recommendations as needed. I discussed case in detail with Dr. Melgar Admission and Anticipated Discharge Date Admission Date: September 18, 2022 Subjective Patient states, "I am feeling much better." He is having brown liquid stools. Tolerating PO intake. He states he would like, "to get our of the hospital." He denies any fevers, chills, nausea, vomiting, hematemesis, melena, or hematochezia. He has no further com Review of Systems Review of Systems: All systems reviewed & are unremarkable except as noted in Subjective Physical Exam Constitutional: WD/WN, vitals as above Respiratory: normal respiratory effort, lungs clear to auscultation Cardiovascular: RRR, no murmur, no edema Gastrointestinal (Abdomen): normal bowel sounds, soft, nontender, no hepatosplenomegaly Skin: + pallor; no rashes Psychiatric: A+Ox3, euthymic affect Results & Data Results & Data ([facility]) Vital Signs (Past 12 Hours) Vital Signs Temp Pulse Resp BP Pulse Ox O2 Del Method 09/19/22 07:55 36.6 C 94 H 18 108/67 99 Room Air PG Care Time/CCT Total # of Minutes Spent Total Time Spent with Patient: Total time spent is greater than 50% in coordination of care (as documented) at patient's floor/unit and/or counseling patient: Coding Level of Care Code 64361 Subseq Hosp Care Lvl 3 Diagnoses Chronic diarrhea K52.9 Unintentional weight loss R63.4 Anemia D64.9 Colitis K52.9
[2022-09-19 13:16] LABS: Hematocrit (blood only) 23.7 % (40.1-51.0); Hemoglobin 7.6 g/dl (14.0-18.0)
--- NOTE | 2022-09-24 14:54 | Discharge Summary ---
Date of Service September 19, 2022 Admission HPI Per Admitting Provider 37-year-old male arrives with 3 months of diarrhea. It initially started with a sinus infection after cleaning out a rodent and feces infested porch. Patient states he has been feeling very fatigued and exhausted. The last 2 weeks worsening diarrhea and notes some increased blood in it. Patient took some [id number]-lodvqng antiparasitic medications which she got from the Internet including 1 that he describes as nitrousoxizide He describes taking aspirin and Motrin over the last day or 2 which helped significantly with his abdominal pain. He denies any epigastric discomfort. Denies any vomiting blood. Most of his abdominal pain in his bilateral lower quadrants worse on the left. Patient does note unintended weight loss recently as well. He has had poor appetite but has been trying to keep up with oral intake of liquids No family history of inflammatory bowel disease Principal Diagnosis colitis Discharge Exam The patient appeared well nourished and normally developed. Vital signs as documented. Head exam is normocephalic atraumatic Neck is without JVD, thyromegaly, or carotid bruits. Lungs are clear to auscultation, no focal loss of breath sounds Cardiac exam, Rhythm is regular.. No murmurs, rubs or gallops. Abdominal exam : regular bowel sounds, nontender Extremities are nonedematous and both pedal pulses are present Neurologic exam is alert and oriented, no focal loss of strength or sensation Skin is without bruises or rashes Psychologically is without concerns for anxiety or depression. Discharge Data Allergies Allergy/AdvReac Type Severity Reaction Status Date / Time No Known Allergies Allergy Verified 09/24/22 14:21 Consultations 09/17/22 14:54 Consult Gastroenterology Routine 09/17/22 15:09 ED Decision to Admit Stat Ordered Studies 09/17/22 12:50 CT abd pelvis IV con only Stat Hospital Course (1) Colitis: Patient is pancolitis with air-fluid level seen on CT scan suggesting infectious etiology. Initial stool PCR is negative. GI consultation to see the patient recommended Cipro and Flagyl at this time. Patient be continued be hydrated with fluids after 2 L volume resuscitation in the ER. Certainly concern for inflammatory bowel disease however the picture on CT does raise some more concerned about this being infectious etiology. Patient improved on steroids, patient no longer having diarrhea. will be discharged on steroid taper. Patient will followup with GI as outpatient. will check hemoglobin next week, patient though not having signs of acute GI bleed, and he is feeling improved. (2) Anemia: Patient is anemic is near microcytic iron B12 folic acid will be checked his stool is heme positive that would be expected with inflammatory colitis Pathology commented that there were few blasts seen in his peripheral smear subsequently pathology informed emergency medicine that they feel this is more reactionary than a bone marrow related issue subsequent we will perform a differential in the morning to continue to survey for abnormal cells (3) Acute kidney injury: resolved, likely pre-renal (4) Moderate protein malnutrition: This seems to be a prolonged illness and likely related to his poor nutritional status Plan DVT prevention SCDs chemoprophylaxis contraindicated with anemia and hematochezia Total Time Total Time Spent Total Time Spent (In Minutes): 35 Discharge Plan Discharge Items Patient Disposition: Home - Self-Care Reason For Visit: ACUTE COLITIS Discharge Diagnosis: acute colitis Activity: Resume your previous activity Non-emergency contact: Primary Care Provider Call non-emergency contact if: you have any medication questions Follow-up/Referrals: Unknown,Unknown [Primary Care Provider] - (PATIENT HAS RECENTLY BEEN ACCEPTED BY [facility] IN [place], [place]. THE PATIENT WILL CALL THE OFFICE AND SCHEDULE A HOSPITAL FOLLOW UP VISIT WITHIN 7-10 BUSINESS DAYS.) Diet: Regular and Low Fiber Addtl Attending Provider Instructions: You were found to have colitis. We will discharge you with a prednisone taper over 8 weeks. Start Prednisone 40 mg by mouth daily for 1 week, then 35 mg by mouth daily for 1 week, then 30 mg by mouth daily for 1 week then decrease by 5 mg weekly. Recommend F/U in our office at the end of next week Continue Cipro/Flagyl therapy for 5 days You will need an outpatient colonoscopy in the next few weeks, once you have responded to the steroids. Will recommend followup with PCP in 1-2 weeks Check blood count on thursday. Pending Studies at Discharge: No Stand-Alone Forms: My [email or web address], Smoking Cessation Medications and DC Order Prescriptions: New metronidazole 500 mg tablet 500 mg PO Q8H Qty: 9 0RF Rx Instructions: first dose tonight. for 3 more days. ciprofloxacin HCl [Cipro] 500 mg tablet 500 mg PO BID Qty: 6 0RF Rx Instructions: first dose tonight 09/19 for 3 more days Continued aspirin 81 mg Tablet,Delayed Release (Dr/Ec) 81 mg PO DAILY ferrous sulfate [iron] 325 mg (65 mg iron) Tablet 325 mg PO DAILY ibuprofen 200 mg Tablet 200 mg PO DAILY vitamin B complex Tablet 1 tab PO DAILY cholecalciferol (vitamin D3) [Vitamin D3] 125 mcg (5,000 unit) Tablet 125 mcg PO DAILY prednisone 10 mg tablet 10 mg PO DAILY Qty: 124 0RF Rx Instructions: Take 4 tablets by mouth daily for 1 week, then decrease by 1/2 pill (5 mg) weekly for total 8 week taper. Discharge Orders: Discharge Order (Routine); Ordered 09/19/22 Ordered By: Leonidas Melgar Admission Data Admit Date/Time: 09/18/22 11:20 Attending Provider: Leonidas Melgar Admit Provider: Levi Nascimento Primary Care Provider: Unknown,Unknown Other Providers: Quang Yanez ; Levi Nascimento Other Interventions: Discharge Summary Assessment (RN) Last Done: 09/19/22 14:22 Coding Level of Care Code D/C DAY MANAGEMENT >30 MINS Diagnoses Colitis K52.9 Anemia D64.9 Acute kidney injury N17.9 Moderate protein malnutrition E44.0
== END 2022-09-19 15:01 | disposition home or self-care (01) | DRG 392 ==
LOC: EDINP 11:37 → ED 11:37 → SUATTDRO 15:16 → 3N 17:29 → SUATTDRO 09-18 11:20
DX: K52.9 Noninfective gastroenteritis and colitis, unspecified; E44.0 Moderate protein-calorie malnutrition; N17.9 Acute kidney failure, unspecified; Z79.82 Long term (current) use of aspirin; R63.4 Abnormal weight loss; K62.5 Hemorrhage of anus and rectum; D64.9 Anemia, unspecified

== ENCOUNTER 2024-01-09 18:57 | Observation (INO) ==
--- OUTSIDE RECORDS SUMMARY | 2024-01-09 19:28 | External Medical Summary | Summary of Care ---
Author Name Unknown Organization [facility] Address [address] [place] [address] Phone [phone] Care Team Providers Care Chief Business Officer Name Role Phone Rudi Reyes DO Primary Care Provider [phone] Reason for Referral * Evaluate & Treat - Unlimited Visits (Within 10 days (routine)) - Pending Review Specialty Diagnoses / Procedures Referred By Familia t Referred To Contact Gastroenterology Diagnoses Crohn's disease of large intestine with other complication (HCC) Khalif Sheth MD [address] [place] [address] Referral ID Status Reason Start Date Expiration Date Visits Requested Visits Authorized [id number] Pending Review Specialty Services Required 3 [phone] Question Answer Referral Priority Within 10 days (routine) Where should this appointment be scheduled? [facility] For what condition is the patient being referred? All Gastro Conditions Comments Crohn's s/p ileocecectomy and end ileostomy at outside hospital with severe colonic inflammation on recent scope prepping for possible ostomy closure. He has seen outside GI, but wants to change to [facility] and needs to be managed better from a medical perspective, ie biologics, before any consideration for ostomy closure. Please schedule at [facility]. Reason for Visit * Reason Comments Follow Up Encounter Details Date Type Department Care Team (Late st Contact Info) Description 09/18/2023 4:00 PM EST Telemedicine General Surgery, [place] [address] [place] [address] Khalif Sheth MD [address] [place] [address] Crohn's disease of large intestine with other complication (HCC)* Allergies No known active allergiesdocumented as of this encounter (statuses as of 09/18/2023) Medications Medication Sig Dispensed Refills Start Date End Date Status Vitamin A 3 MG (64320 UT) Oral Tablet Take by mouth every morning. 0 Active Budesonide 3 MG Oral Capsule Delayed Release Particles Take 1 Capsule by mouth in the morning. 0 Active documented as of this encounter (statuses as of 09/18/2023) Active Problems Problem Noted Date Diagnosed Date ADVANCE DIRECTIVE INFORMATION 11/20/2006 Overview: No, Advance Directive brochure offered , patient declined. Lumbosacral spondylosis 11/20/2006 Overview: 1 mm L5 on S1 documented as of this encounter (statuses as of 09/18/2023) Resolved Problems Problem Noted Date Diagnosed Date Resolved Date NONE 11/20/2006 documented as of this encounter (statuses as of 09/18/2023) Social History Tobacco Use Types Packs/Day Years Used Date Smoking Tobacco: Never Alcohol Use Standard Drinks/Week Comments No 0 (1 standard drink = 0.6 oz pur e alcohol) Sex and Gender Information Value Date Recorded Sex Assigned at Not on file Gender Identity Not on file Sexual Orientation Not on file Job Start Date Occupation Industry Not on file Not on file Not on file documented as of this encounter Progress Notes * Khalif Sheth MD - 09/18/2023 4:33 PM EST After connecting to the patient via telephone, the patient was identified by name and date of . Patient was then informed that this was a telephone call only visit. The patient agreed to participate. Visit Disposition: Routine follow-up Total call duration was 15 minutes. Colorectal Surgery Follow up Note ID: Derek Tapia DATE OF VISIT: 09/18/2023 Chief Complain Chief Complaint Patient presents with Follow Up Subjective No significant changes since last visit. Ostomy functioning without issue, no blood from ileostomy.Denies weight loss, denies significant pain. Objective Exam There were no vitals filed for this visit. No physical exam could be performed as this was a telephone encounter. CT abd/pelvis 07/31/2023 IMPRESSION: 1. Diffus, chronic appearing wall thickening of the residual colon , suggesting chronic inflammatory change. Layering fluid within the colon likely some residual stool. Otherwise no focal obstructing lesion of the colon identified. 2. Wall thickening of distal ileum similar to previous. This extends to the level of the ostomy 3. Nonobstructive bowel gas pattern Colonoscopy 07/14/2023 Impression: - Rectal stricture found on digital rectal exam. - Stricture in the rectum. - Stricture in the sigmoid colon. - Diffuse severe inflammation was found in the rectum and in the sigmoid colon. Biopsied. - All instruments are visually inspected immediately before and after removal from the patient to ensure they are fully intact. Pathology 07/14/2023 A. Colon, biopsy: Colonic mucosa with chronic active inflammation and ulceration, moderate activity (see comment) Negative for dysplasia No evidence of neuroendocrine neoplasm Assessment - Crohn's s/p ileocecectomy and end ileostomy - severe inflammation of colon on recent scope - Neuroendocrine tumor of appendix Plan / Recommendations 1. We had a long discussion about the overall situation. We discussed that, with the way the colon current looks, there is no way I can reverse his ileostomy. He needs his IBD to be better controlledbefore we can even consider doing that. He has seen a bellows assembler outside, but would like tosee someone with [employer]. I placed a referral today. I think he would benefit from biologic therapy if we have any hope of saving his colon. We had a amol discussion this and the possibility that he may need a total colectomy in the future. Will plan to see him back in about 3 months to check in. Khalif Sheth MD Colon and Rectal Surgery 4:34 PM; 09/18/2023 documented in this encounter Plan of Treatment Scheduled Referrals Name Type Priority Associated Diagnoses Orde r Schedule ADULT GASTROENTEROLOGY REFERRAL OP Referral Within 10 days (routine) Crohn's disease of large intestine with other complication (HCC) Ordered: 09/18/2023 Health Maintenance Due Date Last Done Comments COVID-19 Vaccine (#1) 1985 Depression Screening 1997 HIV Screening 2000 DTaP,Tdap,and Td Vaccines (5 - Tdap) 09/26/2002 09/25/2002, 06/27/1991, 1985, Additional history exists Hepatitis C Screening 2003 Influenza Vaccine (FLU shot) (#1) 2023 Hepatitis B Completed 01/29/1999, 04/1999, 08/28/1998 GARDASIL-HPV IMMUNIZATION SERIES Aged Out No longer eligible based on patient's age to complete this topic MENINGOCOCCAL (MENACTRA/MENVEO) Aged Out No longer eligible based on patient's age to complete this topic Pneumococcal Vaccine: Pediatrics (0 to 5 Years) and At-Risk Patients (6 to 64 Years) Aged Out No longer eligible based on patient's age to complete this topic documented as of this encounter Medical Devices Not on filedocumented as of this encounter Visit Diagnoses Diagnosis Crohn's disease of large intestine with other complication (HCC)- Primary documented in this encounter Care Teams Chief Business Officer Relationship Specialty Start Date End Date Rudi Reyes DO [address] [facility] [address] [place] [address] PCP - General Family Medicine 06/15/23 documented as of this encounter
--- OUTSIDE RECORDS SUMMARY | 2024-01-09 19:28 | External Medical Summary | Summary of Care ---
Author Name Unknown Organization [facility] Address [address] [place] [address] Phone [phone] Care Team Providers Care General Internist And Physician Leader Name Role Phone Eric Rudi Park DO Primary Care Provider [phone] Reason for Visit * Auth/Cert Specialty Diagnoses / Procedures Referred By Familia t Referred To Contact Diagnoses Neuroendocrine tumor Neuroendocrine tumor [D3A.8] Procedures COLONOSCOPY, DIAGNOSTIC (RECTUM) COLONOSCOPY FLEXIBLE PROXIMAL DIAGNOSTIC Referral ID Status Reason Start Date Expiration Date Visits Re quested Visits Authorized [id number] [phone] Encounter Details Date Type Department Care Team Description 07/14/2023 Hospital Encounter ENDO [facility], Endoscopy Suite, Outpatient Surgery [address] [id number] Khalif Sheth MD [address] [place] [address] Colonoscopy Allergies No known active allergiesdocumented as of this encounter (statuses as of 07/15/2023) Medications Medication Sig Dispensed Refills Start Date End Date Status Vitamin A 3 MG (80761 UT) Oral Tablet Take by mouth every morning. 0 Active Budesonide 3 MG Oral Capsule Delayed Release Particles Take 1 Capsule by mouth in the morning. 0 Active documented as of this encounter (statuses as of 07/15/2023) Active Problems Problem Noted Date ADVANCE DIRECTIVE INFORMATION 11/20/2006 Overview: No, Advance Directive brochure offered , patient declined. Lumbosacral spondylosis 11/20/2006 Overview: 1 mm L5 on S1 documented as of this encounter (statuses as of 07/15/2023) Resolved Problems Problem Noted Date Resolved Date NONE 11/20/2006 documented as of this encounter (statuses as of 07/15/2023) Social History Tobacco Use Types Packs/Day Years Used Date Smoking Tobacco: Never Alcohol Use Standard Drinks/Week Comments No 0 (1 standard drink = 0.6 oz pur e alcohol) Sex Assigned at Date Recorded Not on file documented as of this encounter Last Filed Vital Signs Vital Sign Reading Time Taken Comments Blood Pressure 119/85 07/14/2023 11:55 AM EDT Pulse 84 07/14/2023 11:55 AM EDT Temperature 36.4 C (97.5 F) 07/14/2023 1 1:55 AM EDT Respiratory Rate 21 07/14/2023 11:5 5 AM EDT Oxygen Saturation 100% 07/14/2023 11: 55 AM EDT Inhaled Oxygen Concentration - - Weight 81.6 kg (179 lb 14.3 oz) 023 10:26 AM EDT Height 185.4 cm (6' 0.99") 07/14/2023 1 0:26 AM EDT Body Mass Index 23.74 07/14/2023 10:26 AM EDT documented in this encounter Procedure Notes * Rudi Reyes DO - 07/14/2023 11:01 AM EDTAssociated Order(s): [place] [facility] [place] Patient Name: Derek Tapia Procedure Date: 07/14/2023 11:01 AM Date of : 1985 Admit Type: Outpatient Note Status: Finalized Date of : 1985 Admit Type: Ambulatory Age: 38 Room: [facility] ENDO Room 4 Gender: Male Note Status: Finalized Procedure: Colonoscopy Indications: Malignant neoplasm of appendix Providers: Khalif Sheth MD Referring MD: Rudi Reyes DO (Referring MD) Medicines: Propofol per Anesthesia Complications: No immediate complications. Procedure: Pre-Anesthesia Assessment: - Prior to the procedure, a History and Physical was performed, and patient medications, allergies and sensitivities were reviewed. The patient's tolerance of previous anesthesia was reviewed. - The risks and benefits of the procedure and the sedation options and risks were discussed with the patient. All questions were answered and informed consent was obtained. - Patient identification and proposed procedure were verified prior to the procedure by the physician, the nurse, the civil drafter and the communications technician. The procedure was verified in the endoscopy suite. - Pre-procedure physical examination revealed no contraindications to sedation. After I obtained informed consent, the scope was passed under direct vision. All instruments were visually inspected immediately before and after removal from the patient to ensure they are fully intact. Throughout the procedure, the patient's blood pressure, pulse, and oxygen saturations were monitored continuously. The [id number] Colonoscope ([id number]) was introduced through the anus with the intention of advancing to the transverse colon. The scope was advanced to the sigmoid colon before the procedure was aborted. Medications were given. The colonoscopy was extremely difficult due to bowel stenosis. The patient tolerated the procedure well. The quality of the bowel preparation was good. Findings & Specimens: The digital rectal exam findings include rectal stricture. A moderate stenosis was found in the rectum and was traversed. A severe stenosis was found in the sigmoid colon and was non-traversed. Diffuse severe inflammation characterized by erythema, friability, granularity and scarring was found in the entire examined colon, up to the stricture in the sigmoid colon. Biopsies were taken with a cold forceps for histology. The pathology specimen was placed into Bottle Number 1. Impression: - Rectal stricture found on digital rectal exam. - Stricture in the rectum. - Stricture in the sigmoid colon. - Diffuse severe inflammation was found in the rectum and in the sigmoid colon. Biopsied. - All instruments are visually inspected immediately before and after removal from the patient to ensure they are fully intact. Recommendation: - Discharge patient to home (ambulatory). - Resume previous diet today. - Continue present medications. - Await pathology results. - Return to my office as previously scheduled. Khalif Sheth MD 07/14/2023 11:38:51 AM This report has been signed electronically. documented in this encounter Nursing Notes * Gabby Ovalles RN - 07/14/2023 11:53 AM EDT Per protocol, the Physician has personally examined the patient, prescribed and verified the charted medications and certified that he/she is recovered for safe discharge from the clinic/department. * Layne Stone RN - 07/14/2023 11:30 AM EDT Specimen(s) and location(s) verified with physician post procedure 11:30 AM Layne Stone RN documented in this encounter Plan of Treatment Pending Results Name Type Priority Associated Diagnoses Date /Time SURGICAL PATHOLOGY Pathology Routine Neuroendocrine tumor 07/14/2023 11:24 AM EDT Scheduled Orders Name Type Priority Associated Diagnoses Orde r Schedule SURGICAL PATHOLOGY Pathology Routine Neuroendocrine tumor Release Upon Ordering for 1 Occurrences starting 07/14/2023, 1 completed Health Maintenance Due Date Last Done Comments [...] Not on filedocumented as of this encounter Procedures Procedure Name Priority Date/Time Associated Diagnosis Comments COLONOSCOPY 07/14/2023 11:01 AM EDT documented in this encounter Results * COLONOSCOPY (07/14/2023 11:01 AM EDT) 07/14/2023 11:0 1 AM EDT Procedure Note Rudi Reyes DO - 07/14/2023 11:01 AM EDT [facility] [place] Patient Name: Derek Tapia Procedure Date: 07/14/2023 11:01 AM Date of : 1985 Admit Type: Outpatient Note Status:Finalized Date of : 1985 Admit Type: Ambulatory Age: 38 Room: OS[facility] ENDO Room 4 Gender: Male Note Status: Finalized Procedure: Colonoscopy Indications: Malignant neoplasm of appendix Providers: Khalif Sheth MD Referring MD: Rudi Reyes DO (Referring MD) Medicines: Propofol per Anesthesia Complications: No immediate complications. Procedure: Pre-Anesthesia Assessment: - Prior to the procedure, a History and Physicalwas performed, and patient medications, allergies and sensitivities werereviewed. The patient's tolerance of previous anesthesia was reviewed. - The risks and benefits of the procedure and thesedation options and risks were discussed with the patient. All questions wereanswered and informed consent was obtained. - Patient identification and proposed procedurewere verified prior to the procedure by the physician, the nurse, the civil drafter andthe communications technician. The procedure was verified in the endoscopy suite. - Pre-procedure physical examination revealed nocontraindications to sedation. After I obtained informed consent, the scope waspassed under direct vision. All instruments were visually inspected immediatelybefore and after removal from the patient to ensure they are fully intact. Throughout the procedure, the patient's bloodpressure, pulse, and oxygen saturations were monitored continuously. The [id number] ([id number]) was introduced through the anus with the intention of advancing tothe transverse colon. The scope was advanced to the sigmoid colon before theprocedure was aborted. Medications were given. The colonoscopy was extremely difficult dueto bowel stenosis. The patient tolerated the procedure well. The quality of thebowel preparation was good. Findings & Specimens: The digital rectal exam findings include rectal stricture. A moderate stenosis was found in the rectum and was traversed. A severe stenosis was found in the sigmoid colon and wasnon-traversed. Diffuse severe inflammation characterized by erythema, friability,granularity and scarring was found in the entire examined colon, up to the stricture in the sigmoidcolon. Biopsies were taken with a cold forceps for histology. The pathology specimen was placed into BottleNumber 1. Impression: - Rectal stricture found on digital rectal exam. - Stricture in the rectum. - Stricture in the sigmoid colon. - Diffuse severe inflammation was found in therectum and in the sigmoid colon. Biopsied. - All instruments are visually inspectedimmediately before and after removal from the patient to ensure they are fully intact. Recommendation: - Discharge patient to home (ambulatory). - Resume previous diet today. - Continue present medications. - Await pathology results. - Return to my office as previously scheduled. Khalif Sheth MD 07/14/2023 11:38:51 AM This report has been signed electronically. 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 documented in this encounter Administered Medications Inactive Administered Medications - up to 3 most recent administrations Medication Order MAR Action Action Date Dose Rate Site Acetaminophen (Tylenol) tab 650 mg 650 mg, Oral, PRN Pain, Mild, Starting on Thu07/14/23 at 1152, Until Thu07/14/23 at 1611, For 1 dose, Maximum of 4 grams (4000 mg) per day., Post-op isolyte-S pH 7.4 infusion Intravenous, at 100 mL/hr, Plasma-LYTE 148, isolyte-S, and isolyte-S pH 7.4 are considered equivalent - including for MAR barcode scanning., CONTINUOUS, Starting on Thu07/14/23 at 1115, Until Thu07/14/23 at 1611, Pre-Op Restarted 07/14/2023 11:36 AM EDT Continue from Pre-Op 07/14/2023 11:11 AM EDT 10 0 mL/hr New Bag 07/14/2023 10:55 AM EDT 100 mL/hr documented in this encounter Active and Recently Administered Medications Times are shown in EDT. Continuous Medication Order 07/12/2023 07/13/2023 07/14/2023 isolyte-S pH 7.4 infusion Intravenous, at 100 mL/hr, Plasma-LYTE 148, isolyte-S, and isolyte-S pH 7.4 are considered equivalent - including for MAR barcode scanning., CONTINUOUS, Starting on Thu07/14/23 at 1115, Until Thu07/14/23 at 1611, Pre-Op 1055 (New Bag - Prov ider: Nay James RN)1111 (Continue from Pre-Op - Provider: Vicky Toledo CRNA)1135 (Paused - Provider: Vicky Toledo CRNA - Comment: Switch to gravity)1136 (Restarted - Provider: Vicky Toledo CRNA)1611 (Due: Stopped) PRN Medication Order 07/12/2023 07/13/2023 07/14/2023 Acetaminophen (Tylenol) tab 650 mg 650 mg, Oral, PRN Pain, Mild, Starting on Thu07/14/23 at 1152, Until Thu07/14/23 at 1611, For 1 dose, Maximum of 4 grams (4000 mg) per day., Post-op documented in this encounter Care Teams General Internist And Physician Leader Relationship Specialty Start Date End Date Rudi Reyes DO [address] [facility] [address] [place] [address] PCP - General Family Medicine 06/15/23 documented as of this encounter
--- OUTSIDE RECORDS SUMMARY | 2024-01-09 19:28 | External Medical Summary | Summary of Care ---
Author Name Unknown Organization [facility] Address [address] [place] [address] Phone [phone] Care Team Providers Care Counter Roller Name Role Phone Eric Rudichika Park DO Primary Care Provider [phone] Reason for Referral * Precert (Within 10 days (routine)) - Pending Review Specialty Diagnoses / Procedures Referred By Conttim t Referred To Contact Radiology Diagnoses Crohn's disease of large intestine with other complication (HCC) Procedures CT ABD/PELVIS W IV AND W ORAL CONTRAST Khalif Sheth MD [address] [place] [address] Referral ID Status Reason Start Date Expiration Date V isits Requested Visits Authorized [id number] Pending Review 07/14/[phone] Encounter Details Date Type Department Care Team Description 07/14/2023 Orders Only General Surgery, [place] [address] [place] [address] Khailf Sheth MD [address], [place] [id number] Crohn's disease of large intestine with other complication (HCC)* Allergies No known active allergiesdocumented as of this encounter (statuses as of 07/14/2023) Medications Medication Sig Dispensed Refills Start Date End Date Status Vitamin A 3 MG (27943 UT) Oral Tablet Take by mouth every morning. 0 Active Budesonide 3 MG Oral Capsule Delayed Release Particles Take 1 Capsule by mouth in the morning. 0 Active documented as of this encounter (statuses as of 07/14/2023) Active Problems Problem Noted Date ADVANCE DIRECTIVE INFORMATION 11/20/2006 Overview: No, Advance Directive brochure offered , patient declined. Lumbosacral spondylosis 11/20/2006 Overview: 1 mm L5 on S1 documented as of this encounter (statuses as of 07/14/2023) Resolved Problems Problem Noted Date Resolved Date NONE 11/20/2006 documented as of this encounter (statuses as of 07/14/2023) Social History Tobacco Use Types Packs/Day Years Used Date Smoking Tobacco: Never Alcohol Use Standard Drinks/Week Comments No 0 (1 standard drink = 0.6 oz pur e alcohol) Sex Assigned at Date Recorded Not on file documented as of this encounter Plan of Treatment Scheduled Orders Name Type Priority Associated Diagnoses Orde r Schedule CT ABD/PELVIS W IV AND W ORAL CONTRAST Medical Imaging Routine Crohn's disease of large intestine with other complication (HCC) Ordered: 07/14/2023 Scheduled Procedures Name Priority Associated Diagnoses Date/Ti me COLONOSCOPY FLEXIBLE PROXIMA L DIAGNOSTIC Neuroendocrine tumor 07/14/2023 11:05 AM EDT Health Maintenance Due Date Last Done Comments [...] Primary documented in this encounter Care Teams Counter Roller Relationship Specialty Start Date End Date Rudi Reyes, [address] [facility] [address] [place] [address] PCP - General Family Medicine 06/15/23 documented as of this encounter
--- OUTSIDE RECORDS SUMMARY | 2024-01-09 19:28 | External Medical Summary | Summary of Care ---
Author Name Unknown Organization [facility] Address [address] [place] [address] Phone [phone] Care Team Providers Care Hand Twister Name Role Phone Eric Rudichika Park DO Primary Care Provider [phone] Reason for Visit * Reason Onset Date Comments Appointment 12/29/2023 Encounter Details Date Type Department Care Team (Late st Contact Info) Description 12/29/2023 Telephone General Surgery, [place] [address] [place] [address] Khalif Sheth MD [address] [place] [address] Appointment Allergies No known active allergiesdocumented as of this encounter (statuses as of 12/29/2023) Medications Medication Sig Dispensed Refills Start Date End Date Status Vitamin A 3 MG (36708 UT) Oral Tablet Take by mouth every morning. 0 Active Budesonide 3 MG Oral Capsule Delayed Release Particles Take 1 Capsule by mouth in the morning. 0 Active documented as of this encounter (statuses as of 12/29/2023) Active Problems Problem Noted Date Diagnosed Date ADVANCE DIRECTIVE INFORMATION 11/20/2006 Overview: No, Advance Directive brochure offered , patient declined. Lumbosacral spondylosis 11/20/2006 Overview: 1 mm L5 on S1 documented as of this encounter (statuses as of 12/29/2023) Resolved Problems Problem Noted Date Diagnosed Date Resolved Date NONE 11/20/2006 documented as of this encounter (statuses as of 12/29/2023) Social History Tobacco Use Types Packs/Day Years [...] on file documented as of this encounter Miscellaneous Notes * Telephone Encounter - Laura Beckett MED ASSIST - 12/29/2023 8:35 AM EST Left a message to reschedule canceled appointment on 12/17/23. documented in this encounter Plan of Treatment Health Maintenance Due Date Last Done Comments Depression Screening 1997 HIV Screening 2000 DTaP,Tdap,and Td Vaccines (5 - Tdap) 09/26/2002 09/25/2002, 06/27/1991, 1985, Additional history exists Hepatitis C Screening 2003 COVID-19 Vaccine (2022-24 season) 2023 Influenza Vaccine (FLU shot) (#1) 2023 Hepatitis [...] Not on filedocumented as of this encounter Care Teams Hand Twister Relationship Specialty Start Date End Date Rudi Reyes DO [address] [facility] [address] [place] [address] PCP - General Family Medicine 06/15/23 documented as of this encounter
[2024-01-09 19:44] LABS: Hematocrit (blood only) 48.9 % (42.0-52.0); Hemoglobin 16.7 g/dl (14.0-18.0); Mean Corpuscular Hemoglobin 26.1 pg (25.0-34.0); Mean Corpuscular Hgb Conc 34.2 g/dL (32.0-36.0); Mean Corpuscular Volume 76.4 fL (80.0-100.0); Mean Platelet Volume 10.1 fL (9.4-12.4); Platelet Count 407 K/uL (130-400); RDW Coefficient of Variation 18.2 % (11.5-14.5); RDW Standard Deviation 46.4 fL (36.4-46.3); White Blood Count 2.97 K/ul (4.8-10.8)
[2024-01-09 19:52] LABS: Alanine Aminotransferase 32 U/L (7-52); Albumin Globulin Ratio 1.5 (0.9-2); Albumin Level 5.1 gm/dl (3.4-5.0); Alkaline Phosphatase 64 U/L (34-104); Anion Gap 10 (3-11); Aspartate Aminotransferase 29 U/L (13-39); BUN Creatinine Ratio 27.1 (10-20); Blood Urea Nitrogen 42 mg/dl (6-23); Carbon Dioxide 24 mmol/L (21-32); Chloride 97 mmol/L (98-107); Est GFR (African American) 64.9 ml/min; Globulin 3.4 gm/dl (2.5-4.0); Glucose 106 mg/dl (70-99(Fasting)); Potassium 4.5 mmol/L (3.5-5.1); Sodium 131 mmol/L (136-145); Total Protein 8.5 gm/dl (6.0-8.3)
[2024-01-09] MEDS: KETOROLAC TROMETHAMINE 15 MG/ML VIAL IV ONE (19:57)
[2024-01-09] MEDS: DROPERIDOL 5 MG/2 ML VIAL IV STA (19:57)
[2024-01-09] MEDS: SODIUM CHLORIDE 0.9% 1,000 ML IV ONE (19:57)
[2024-01-09] MEDS: OPTIRAY 320 100ml IV ONE (20:11)
[2024-01-09 20:51] LABS: ALC (manual) 0.62 K/uL (1.2-3.4); ANC (manual) 1.81 K/uL (1.4-6.5); Lymphocytes # (manual) 0.15 K/uL (1.2-3.4); Lymphocytes % (manual) 5 %; Monocytes # (manual) 0.53 K/uL (0.11-0.59); Monocytes % (manual) 18 %; Neutrophils # (manual) 1.81 K/uL (1.40-6.50); Ovalocytes 1+; Reactive Lymphocytes # (manual) 0.48 K/uL; Reactive Lymphocytes % (manual) 16 %
--- NOTE | 2024-01-09 20:53 | Emergency Department Note ---
Impression & Plan SBO (small bowel obstruction), Intractable nausea and vomiting ED Provider Note NAME: GEMMA BOJORQUEZ AGE: 38 SEX: M : 1985 ARRIVES VIA: Walk-In INFORMANT: Patient, ED PROVIDER(S): Bladimir Apple MD CHIEF COMPLAINT: Nausea/vomiting HPI: This is a 38-year-old male presenting for nausea with vomiting. Patient dates he has an ostomy and of the past 2 days has had profuse nausea vomiting. He notes he may have also had some watery discharge from his ostomy. He is concerned about obstruction. He was under eat something he gets nauseous and vomited back up. He thinks he can feel an obstruction in his abdomen. Otherwise he notes no fevers or chills. His body cannot tolerate any p.o. at this time. ROS: See above HPI for pertinent positives & negatives. A total of 10 systems reviewed and were otherwise negative. PAST MEDICAL HISTORY: See Below PAST SURGICAL HISTORY: See Below FAMILY HISTORY: See Below SOCIAL HISTORY: See Below HOME MEDICATIONS: See Below ALLERGIES: See Below VITALS: See Below PHYSICAL EXAMINATION: General: resting comfortably in no acute distress Head: Normocephalic and atraumatic Eyes: Normal inspection, extraocular muscles intact Ear, nose, throat: Normal external exam Neck: Normal range of motion Respiratory: lungs clear to auscultation bilaterally Cardiovascular: Regular rate/rhythm, no murmur GI: soft, no guarding or rebound, well-healing surgical scar on abdomen, ostomy without erythema, diffuselytender without guarding Extremities: nontender, moves all extremities Neuro: The patient awake and alert, appropriately conversive, no focal deficits, symmetric faces Skin: Warm, dry, and intact MEDICAL DECISION MAKING: This is a 38-year-old male presenting for nausea/vomiting. Consider SBO, volvulus, diverticulitis, hernia. Blood work and imaging required due to patient's complex medical history with ostomy, now persistent vomiting and pain. -Blood work is reviewed with leukopenia. Otherwise no severe LFT elevations or other significant abnormalities on blood work. Urinalysis reveals no significant abnormalities. -DUe to persistent N/V will give droperidol for nausea. Willl fluid resucitate as well. Given toradol for pain. -CT imaging of the abdomen/pelvis does reveal a likely SBO. -Discussed case with surgery on-call who recommends admission to medicine with surgical consult. -Patient accepted to hospital service for SBO at this time. Differential diagnosis: See above ER treatment provided: See below Diagnostics interpreted by me: ECG: None Cardiac Monitoring: An order was placed for continuous cardiac monitoring. The monitor shows a rate of 80 with sinus rhythm. Laboratory studies: As stated above and show below. Imaging studies: See below. Past Med/Surg History Medical History SOB (shortness of breath) since being treated at the Emergency Room for acute colitis and having severe anemia at the time. patient did not receive any blood transfusions during inpatient stay d/t personal beliefs/requests. patient was to have repeat blood work done, has not yet had it done -- instructed patient to have ordered blood work done as soon as he can. No transfusions per taoism beliefs pt does not state it is due to taoism beliefs but states does not want "transfusions of any kind" Anemia Colitis Unintentional weight loss Chronic diarrhea Surgical History History of intestinal surgery History of appendectomy Family History Denies family history of Crohn's disease Colorectal cancer Ulcerative colitis Social History Smoking Status: Never smoker Second Hand Exposure: No; Do You Dip or Chew Tobacco: No; Hx Alcohol Use: No Hx Substance Use: No Preferred Language: Vietnamese Communication Ability: Effective Visual Impairment: No Limitations Hearing Ability: Normal Mill Platform Supervisor Required: No Beliefs That Will Affect Care: None marital status: Single Current Living Situation: Family current occupational status: employed Feels Safe at Home: Yes Safety Concerns: Feels Safe At This Time Diet Comment: Low fiber and high protein caffeine: Yes Assistive Devices: Contacts and Glasses Allergies Allergies Allergy/AdvReac Type Severity Reaction Status Date / Time No Known Allergies Allergy Verified 01/09/24 20:35 Home Meds Home Medications Medication Instructions Recorded Confirmed acetaminophen 500 mg oral powder 1,000 mg PO DIRECTED PRN 01/09/24 01/09/24 packet PAIN/FEVER budesonide 3 mg 3 mg PO DAILY PRN FLARE UP PER PT 01/09/24 01/09/24 capsule,delayed,extended release Results & Data (ED) Vital Signs Vital Signs - 24 hr 01/09/24 18:59 01/09/24 19:01 01/09/24 20:15 Temperature 36.9 C Temperature Source Temporal Artery Scan Pulse Rate 130 H Pulse Rate [Right Radial] 93 H Respiratory Rate 20 16 Respiratory Effort / Characteristics Non-Labored Non-Labored Spontaneous Respiratory Depth Normal Normal Respiratory Pattern Regular Blood Pressure 105/70 Blood Pressure [Left Arm] 108/71 Blood Pressure Mean 81 Blood Pressure Mean [Left Arm] 83 Pulse Oximetry 97 96 Oxygen Delivery Method Room Air Room Air Room Air Sepsis Recent Fever Within 48 Hours No Sepsis New/Unexplained Change in Mental Status No Sepsis Action Taken by Nursing No Action Required 01/09/24 22:00 Temperature Temperature Source Pulse Rate Pulse Rate [Right Radial] Respiratory Rate 16 Respiratory Effort / Characteristics Non-Labored Respiratory Depth Normal Respiratory Pattern Regular Blood Pressure Blood Pressure [Left Arm] Blood Pressure Mean Blood Pressure Mean [Left Arm] Pulse Oximetry Oxygen Delivery Method Room Air Sepsis Recent Fever Within 48 Hours Sepsis New/Unexplained Change in Mental Status Sepsis Action Taken by Nursing Laboratory Data 01/10/24 05:19 01/10/24 05:19 Lab Results 01/09/24 01/09/24 Range/Units 19:20 19:50 WBC 2.97 L (4.8-10.8) K/ul RBC 6.40 H (4.70-6.10) M/uL Hgb 16.7 (14.0-18.0) g/dl Hct 48.9 (42.0-52.0) % MCV 76.4 L (80.0-100.0) fL MCH 26.1 (25.0-34.0) pg MCHC 34.2 (32.0-36.0) g/dL RDW Std Deviation 46.4 H (36.4-46.3) fL RDW Coeff of Cipriano 18.2 H (11.5-14.5) % Plt Count 407 H (130-400) K/uL MPV 10.1 (9.4-12.4) fL Neut % (Auto) Not Reportable Neutrophils % (Manual) 61 % Lymphocytes % (Manual) 5 % Reactive Lymphs % (Man) 16 % Monocytes % (Manual) 18 % Neutrophils # (Manual) 1.81 (1.40-6.50) K/uL Total Absolute Neuts 1.81 (1.4-6.5) K/uL Lymphocytes # (Manual) 0.15 L (1.2-3.4) K/uL Reactive Lymphs # 0.48 K/uL Total Abs Lymphocytes 0.62 L (1.2-3.4) K/uL Monocytes # (Manual) 0.53 (0.11-0.59) K/uL Ovalocytes 1+ Sodium 131 L (136-145) mmol/L Potassium 4.5 (3.5-5.1) mmol/L Chloride 97 L (98-107) mmol/L Carbon Dioxide 24 (21-32) mmol/L Anion Gap 10 (3-11) BUN 42 H (6-23) mg/dl Creatinine 1.55 H (0.6-1.4) mg/dl Est Cr Clr Drug Dosing Not Reportable Est GFR ( Amer) 64.9 ml/min Est GFR (Non-Af Amer) 56.0 ml/min BUN/Creatinine Ratio 27.1 H (10-20) Glucose 106 H (70-99(Fasting)) mg/dl Lactate 1.7 (0.4-2.0) mmol/L Calcium 10.0 (8.6-10.3) mg/dl Magnesium 2.1 (1.7-2.4) mg/dl Total Bilirubin 1.0 (0.2-1.0) mg/dl AST 29 (13-39) U/L ALT 32 (7-52) U/L Alkaline Phosphatase 64 (34-104) U/L Total Protein 8.5 H (6.0-8.3) gm/dl Albumin 5.1 H (3.4-5.0) gm/dl Globulin 3.4 (2.5-4.0) gm/dl Albumin/Globulin Ratio 1.5 (0.9-2) Administered Medications Lactated Ringer's (Lr) 1,000 mls @ 125 mls/hr IV .Q8H COUNTS INCLUDE 234 BEDS AT THE [facility] Stop: 02/09/24 00:33 Last Admin: 01/10/24 09:52 Dose: 125 mls/hr Documented By: Infusion: 01/10/24 09:43 Dose: Infused Documented By: Admin: 01/10/24 01:29 Dose: 125 mls/hr Documented By: MANUELITO Discontinued Medications Al Hydrox/Mg Hydrox/Simethicone (Aluminum/Magnesium Susp 30 Ml Udc) 15 ml PO NOW STA Stop: 01/09/24 23:10 Last Admin: 01/09/24 23:55 Dose: 15 ml Documented By: TONY Budesonide (Budesonide Ec 3 Mg Cap) 3 mg PO DAILY JOSEPH Stop: 02/09/24 08:59 Last Admin: 01/10/24 09:55 Dose: Not Given Documented By: TAMARA Droperidol (Droperidol 5 Mg/2 Ml Vial) 2.5 mg IV ONE STA Stop: 01/09/24 19:54 Last Admin: 01/09/24 19:57 Dose: 2.5 mg Documented By: JESSA Sodium Chloride (Nss) 1,000 mls @ 999 mls/hr IV .Q1H1M ONE Stop: 01/09/24 20:47 Last Infusion: 01/09/24 21:14 Dose: Infused Documented By: Admin: 01/09/24 19:57 Dose: 999 mls/hr Documented By: JESSA Famotidine (Pepcid 20mg Iv Push) 20 mg in 5 mls @ 2.5 mls/min IV NOW STA Stop: 01/09/24 23:10 Last Admin: 01/09/24 23:56 Dose: 2.5 mls/min Documented By: TONY Ioversol (Optiray 320 100ml) 93 ml IV ONCE ONE Stop: 01/09/24 20:12 Last Admin: 01/09/24 20:11 Dose: 93 ml Documented By: LAMINE Ketorolac Tromethamine (Ketorolac Tromethamine 15 Mg/Ml Vial) 15 mg IV NOW ONE Stop: 01/09/24 19:48 Last Admin: 01/09/24 19:57 Dose: 15 mg Documented By: JESSA Discharge Plan Visit Data Chief Complaint: Abdominal Pain Stated Complaint: ABDOMINAL PAIN, VOMITING - POSSIBLE BLOCKAGE ED Provider: Bladimir Apple Discharge Problem: SBO (small bowel obstruction), Intractable nausea and vomiting Patient Disposition: Admitted As Inpatient Discharge Instructions Interventions: ED Discharge Assessment Last Done: 01/10/24 00:07
[2024-01-09 21:23] LABS: Neutrophils % (manual) 61 %
--- NOTE | 2024-01-09 21:57 | CT Scan Report ---
Exam(s): CT ABDOMEN + PELVIS With Contrast IV Amt: OPTIRAY 320 93ML EXAM: CT Abdomen and Pelvis With Intravenous Contrast CLINICAL HISTORY: Reason for exam: N/V, concern for SBO. TECHNIQUE: Axial computed tomography images of the abdomen and pelvis with intravenous contrast. CTDI is 17.95 mGy and DLP is 840.78 mGy-cm. Automated exposure control was utilized for the study. A dose lowering technique was utilized adhering to the principles of ALARA. CONTRAST: Patient received OPTIRAY 320 93ML of IV contrast COMPARISON: 09/17/22 FINDINGS: Lung bases: Unremarkable. No mass. No consolidation. ABDOMEN: Liver: Unremarkable. No mass. Gallbladder and bile ducts: Unremarkable. No calcified stones. No ductal dilation. Pancreas: Unremarkable. No mass. No ductal dilation. Spleen: Unremarkable. No splenomegaly. Adrenals: Unremarkable. No mass. Kidneys and ureters: Symmetric renal enhancement. No hydronephrosis. Stomach and bowel: Postoperative changes of right hemicolectomy with oversewn distal colonic segment, which is decompressed. Right lower quadrant ileostomy. Dilated and fluid-filled loops of small bowel measuring up to 4 cm extending to the right lower quadrant ileostomy. PELVIS: Appendix: See above. Bladder: Unremarkable. Normal urinary bladder. Reproductive: Prostate is normal in size. ABDOMEN and PELVIS: Intraperitoneal space: Unremarkable. No free air. No significant fluid collection. Bones/joints: Disc degeneration in the lumbar spine. Bilateral pars defects at L5 without spondylolisthesis. No acute fracture or dislocation. Soft tissues: Unremarkable. Vasculature: Unremarkable. No abdominal aortic aneurysm. Lymph nodes: Unremarkable. No enlarged lymph nodes. IMPRESSION: 1. Status post right hemicolectomy with right lower quadrant ileostomy. 2. Dilated small bowel extending to the right lower quadrant ileostomy concerning for small bowel obstruction with transition point at the ileostomy site. Underlying enteritis not excluded. Electronically signed by: Robe Veras M.D. 01/09/24 21:56 PM
--- NOTE | 2024-01-09 23:15 | History & Physical Report ---
Date of Service January 09, 2024 Assessment & Plan (1) Small bowel obstruction: Plan: 38yo male with history of hemorrhagic colitis s/p bowel perforation and resection with ileostomy formation in February 2023 - likely IBD but uncertain of details. Patient has Budesonide to use PRN but does not take it often. Suspect enteritis, possible SBO per CT findings Symptoms are improving -Admit to medical -Keep NPO for now -IVF with LR at 125mL/hr x 3L -Morphine PRN pain - limit use -Zofran PRN nausea -KUB in AM -Request records from [facility] [place] (2) Acute kidney injury: Plan: Patient dehydrated - Elevated BUN 42 and Cr of 1.55 (increased from prior values of 15 and 0.16, respectively. Also appears to be hemoconcentrated with Hgb of 16.7. Suspect dehydration from vomiting and decreased oral intake -Continue LR at 125mL/hr x 3L -Repeat chemistry panel in AM -Avoid nephrotoxic agents -Renal dosing where needed (3) Colitis: Plan: Patient with history of hemorrhagic colitis, ?UC -Continue Budesonide History of Present Illness Chief Complaint: abdominal pain, vomiting Primary Care Provider: DO Jalen Chappelltwan Tapia is a 38yo male with history of hemorrhagic colitis, pneumoperitoneum s/p exploratory laparotomy with right colectomy and ileostomy creation performed on 01/06/23. Patient with post-operative wound dehiscence which was treated with wound care. 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 He is to follow with GI and Oncology - uncertain if he is doing either. He presents today with two days of nausea, vomiting, decreased appetite and PO intolerance. Also with watery output from his ostomy. Today he has had minimal ostomy output. He has ongoing abdominal pain and voices concern about possible obstruction. Nausea and vomiting have improved slightly. He had some chills and cold sweats over the last two days but these are impro ving as well. No report of chest pain, cough, SOB. No additional complaints at this time. In the ER patient was somewhat agitated at first. ER Course: Droperidol Toradol NSS Allergies Allergy/AdvReac Type Severity Reaction Status Date / Time No Known Allergies Allergy Verified 01/09/24 20:35 Home Medications Medication Instructions Recorded Confirmed Type acetaminophen 500 mg oral powder 1,000 mg PO DIRECTED PRN 01/09/24 01/09/24 History packet PAIN/FEVER budesonide 3 mg 3 mg PO DAILY PRN FLARE UP PER PT 01/09/24 01/09/24 History capsule,delayed,extended release Past Med/Surg History Medical History SOB (shortness of breath) since being treated at the Emergency Room for acute colitis and having severe anemia at the time. patient did not receive any blood transfusions during inpatient stay d/t personal beliefs/requests. patient was to have repeat blood work done, has not yet had it done -- instructed patient to have ordered blood work done as soon as he can. No transfusions per adventism beliefs pt does not state it is due to adventism beliefs but states does not want "transfusions of any kind" Anemia Colitis Unintentional weight loss Chronic diarrhea Surgical History History of intestinal surgery History of appendectomy Family History Denies family history of Crohn's disease Colorectal cancer Ulcerative colitis Social History Smoking Status: Never smoker Second Hand Exposure: No; Do You Dip or Chew Tobacco: No; Hx Alcohol Use: No Hx Substance Use: No Preferred Language: Moldovan Communication Ability: Effective Visual Impairment: No Limitations Hearing Ability: Normal It Quality Assurance Analyst Required: No Beliefs That Will Affect Care: None marital status: Single Current Living Situation: Family current occupational status: employed Feels Safe at Home: Yes Safety Concerns: Feels Safe At This Time Diet Comment: Low fiber and high protein caffeine: Yes Assistive Devices: Contacts and Glasses Review of Systems Review of Systems: All systems reviewed & are unremarkable except as noted in HPI & below Physical Exam Physical Exam: General: patient resting comfortably, NAD, non-toxic in appearance, AA&O x 4 Skin: warm, dry, intact, no rashes or lesions HEENT: NC/AT, PERRL, EOMI, anicteric sclera, conjunctiva without injection, external ear normal to inspection and nontender, nares patent, slightly dry mucus membranes, dentition intact, no oropharyngeal lesions, neck supple, trachea midline, no LAD, no thyromegaly, no JVD Heart: +S1/S2, regular, no m/r/g Lungs: equal air entry bilaterally, no rales/rhonchi/wheezes Abd: +BS, soft, ND, mildly tender with palpation but no rebound or guarding, no masses/organomegaly/ascites Ileostomy in place with small amount of liquid output. Large midline abdominal scar, well healed Ext: warm, 2+ pulses in UE/LE bilaterally, no clubbing/cyanosis or edema Neuro: nonfocal, patient AA&O x 4, speech intact, no facial droop, moving all extremities on command with equal strength 5/5 Results & Data Results & Data Vital Signs (Past 12 Hours) Vital Signs Temp Pulse Pulse Resp BP BP Pulse Ox 01/09/24 22:00 16 01/09/24 20:15 93 H 16 108/71 96 01/09/24 19:01 36.9 C 130 H 20 105/70 97 01/09/24 18:59 O2 Del Method 01/09/24 22:00 Room Air 01/09/24 20:15 Room Air 01/09/24 19:01 Room Air 01/09/24 18:59 Room Air Laboratory Results Laboratory Results WBC 2.97 K/ul (4.8-10.8) L 01/09/24 19:20 RBC 6.40 M/uL (4.70-6.10) H 01/09/24 19:20 Hgb 16.7 g/dl (14.0-18.0) 01/09/24 19:20 Hct 48.9 % (42.0-52.0) 01/09/24 19:20 MCV 76.4 fL (80.0-100.0) L 01/09/24 19:20 MCH 26.1 pg (25.0-34.0) 01/09/24 19:20 MCHC 34.2 g/dL (32.0-36.0) 01/09/24 19:20 RDW Std Deviation 46.4 fL (36.4-46.3) H 01/09/24 19:20 RDW Coeff of Cipriano 18.2 % (11.5-14.5) H 01/09/24 19:20 Plt Count 407 K/uL (130-400) H 01/09/24 19:20 MPV 10.1 fL (9.4-12.4) 01/09/24 19:20 Neut % (Auto) Not Reportable 01/09/24 19:20 Neutrophils % (Manual) 61 % 01/09/24 19:20 Lymphocytes % (Manual) 5 % 01/09/24 19:20 Reactive Lymphs % (Man) 16 % 01/09/24 19:20 Monocytes % (Manual) 18 % 01/09/24 19:20 Neutrophils # (Manual) 1.81 K/uL (1.40-6.50) 01/09/24 19:20 Total Absolute Neuts 1.81 K/uL (1.4-6.5) 01/09/24 19:20 Lymphocytes # (Manual) 0.15 K/uL (1.2-3.4) L 01/09/24 19:20 Reactive Lymphs # 0.48 K/uL 01/09/24 19:20 Total Abs Lymphocytes 0.62 K/uL (1.2-3.4) L 01/09/24 19:20 Monocytes # (Manual) 0.53 K/uL (0.11-0.59) 01/09/24 19:20 Ovalocytes 1+ 01/09/24 19:20 Sodium 131 mmol/L (136-145) L 01/09/24 19:20 Potassium 4.5 mmol/L (3.5-5.1) 01/09/24 19:20 Chloride 97 mmol/L (98-107) L 01/09/24 19:20 Carbon Dioxide 24 mmol/L (21-32) 01/09/24 19:20 Anion Gap 10 (3-11) 01/09/24 19:20 BUN 42 mg/dl (6-23) H 01/09/24 19:20 Creatinine 1.55 mg/dl (0.6-1.4) H 01/09/24 19:20 Est Cr Clr Drug Dosing Not Reportable 01/09/24 19:20 Est GFR ( Amer) 64.9 ml/min 01/09/24 19:20 Est GFR (Non-Af Amer) 56.0 ml/min 01/09/24 19:20 BUN/Creatinine Ratio 27.1 (10-20) H 01/09/24 19:20 Glucose 106 mg/dl (70-99(Fasting)) H 01/09/24 19:20 Lactate 1.7 mmol/L (0.4-2.0) 01/09/24 19:50 Calcium 10.0 mg/dl (8.6-10.3) 01/09/24 19:20 Magnesium 2.1 mg/dl (1.7-2.4) 01/09/24 19:20 Total Bilirubin 1.0 mg/dl (0.2-1.0) 01/09/24 19:20 AST 29 U/L (13-39) 01/09/24 19:20 ALT 32 U/L (7-52) 01/09/24 19:20 Alkaline Phosphatase 64 U/L (34-104) 01/09/24 19:20 Total Protein 8.5 gm/dl (6.0-8.3) H 01/09/24 19:20 Albumin 5.1 gm/dl (3.4-5.0) H 01/09/24 19:20 Globulin 3.4 gm/dl (2.5-4.0) 01/09/24 19:20 Albumin/Globulin Ratio 1.5 (0.9-2) 01/09/24 19:20 Impressions Abdomen/Pelvis CT 01/09/24 19:13 Exam(s): CT ABDOMEN + PELVIS With Contrast IV Amt: OPTIRAY 320 93ML EXAM: CT Abdomen and Pelvis With Intravenous Contrast CLINICAL HISTORY: Reason for exam: N/V, concern for SBO. TECHNIQUE: Axial computed tomography images of the abdomen and pelvis with intravenous contrast. CTDI is 17.95 mGy and DLP is 840.78 mGy-cm. Automated exposure control was utilized for the study. A dose lowering technique was utilized adhering to the principles of ALARA. CONTRAST: Patient received OPTIRAY 320 93ML of IV contrast COMPARISON: 09/17/22 FINDINGS: Lung bases: Unremarkable. No mass. No consolidation. ABDOMEN: Liver: Unremarkable. No mass. Gallbladder and bile ducts: Unremarkable. No calcified stones. No ductal dilation. Pancreas: Unremarkable. No mass. No ductal dilation. Spleen: Unremarkable. No splenomegaly. Adrenals: Unremarkable. No mass. Kidneys and ureters: Symmetric renal enhancement. No hydronephrosis. Stomach and bowel: Postoperative changes of right hemicolectomy with oversewn distal colonic segment, which is decompressed. Right lower quadrant ileostomy. Dilated and fluid-filled loops of small bowel measuring up to 4 cm extending to the right lower quadrant ileostomy. PELVIS: Appendix: See above. Bladder: Unremarkable. Normal urinary bladder. Reproductive: Prostate is normal in size. ABDOMEN and PELVIS: Intraperitoneal space: Unremarkable. No free air. No significant fluid collection. Bones/joints: Disc degeneration in the lumbar spine. Bilateral pars defects at L5 without spondylolisthesis. No acute fracture or dislocation. Soft tissues: Unremarkable. Vasculature: Unremarkable. No abdominal aortic aneurysm. Lymph nodes: Unremarkable. No enlarged lymph nodes. IMPRESSION: 1. Status post right hemicolectomy with right lower quadrant ileostomy. 2. Dilated small bowel extending to the right lower quadrant ileostomy concerning for small bowel obstruction with transition point at the ileostomy site. Underlying enteritis not excluded. Electronically signed by: Robe Veras M.D. 01/09/24 21:56 PM PG Care Time/CCT Total # of Minutes Spent Total Time Spent with Patient: Total time spent is greater than 50% in coordination of care (as documented) at patient's floor/unit and/or counseling patient: Coding Level of Care Code 58562 INT INP/OBS CARE 2/55MIN Diagnoses Small bowel obstruction K56.609 Acute kidney injury N17.9 Colitis K52.9
[2024-01-09] MEDS: ALUMINUM/MAGNESIUM SUSP 30 ML UDC PO STA (23:55)
[2024-01-09] MEDS: FAMOTIDINE 20MG IV PUSH 20 MG/5 ML SYR IV STA (23:56)
[2024-01-10] MEDS ORDERED: MoRPHine SULFATE 4 MG/ML 1 ML CARP\\VIAL IV PRN (00:34)
[2024-01-10] MEDS ORDERED: MoRPHine SULFATE 2 MG/ML CARP IV PRN (00:34)
[2024-01-10] MEDS ORDERED: ONDANSETRON INJ 2 MG/ML 2 ML VIAL IV PRN (00:34)
[2024-01-10 01:13] LABS: Magnesium 2.1 mg/dl (1.7-2.4)
[2024-01-10] MEDS: LACTATED RINGER'S 1,000 ML IV SCH (01:29)
[2024-01-10 06:08] LABS: Hematocrit (blood only) 46.1 % (42.0-52.0); Hemoglobin 14.9 g/dl (14.0-18.0); Mean Corpuscular Hemoglobin 25.1 pg (25.0-34.0); Mean Corpuscular Hgb Conc 32.3 g/dL (32.0-36.0); Mean Corpuscular Volume 77.7 fL (80.0-100.0); Mean Platelet Volume 10.1 fL (9.4-12.4); Platelet Count 323 K/uL (130-400); RDW Coefficient of Variation 17.8 % (11.5-14.5); RDW Standard Deviation 47.4 fL (36.4-46.3); Red Blood Count 5.93 M/uL (4.70-6.10); White Blood Count 3.82 K/ul (4.8-10.8)
[2024-01-10 06:27] LABS: BUN Creatinine Ratio 30.6 (10-20); Calcium 9.3 mg/dl (8.6-10.3); Creatinine Clr Calc Pharmacy 83.4 ml/min; Est GFR (African American) 77.3 ml/min; Est GFR (Non-African American) 66.7 ml/min
[2024-01-10] MEDS: BUDESONIDE EC 3 MG CAP PO SCH (09:53)
[2024-01-10 10:19] LABS: Appearance Urine Clear (Clear); Bacteria Urine Automated Negative (Negative); Bilirubin Urine Negative (Negative); Blood Urine Negative (Negative); Color Urine Yellow; Glucose Urine UA Negative (Negative); Ketones Urine 1+ (Negative); Leukocyte Esterase Urine Negative (Negative); Nitrite Urine Negative (Negative); Protein Urine Trace (Negative); RBC Urine Automated 0-4 /hpf (0-4); Specific Gravity Urine 1.042 (1.000-1.030); Urobilinogen Urine Negative (Negative); pH Urine 5.5 (4.5-7.5)
--- NOTE | 2024-01-10 10:33 | XRay Report ---
KUB HISTORY: Follow-up small bowel obstruction. ?SBO COMPARISON: Abdomen and pelvis CT 01/09/2024. FINDINGS: Dilated loops of small bowel persist consistent the patient's small bowel obstruction. Ther e are suture material within the right side the abdomen. Right lower quadrant ostomy again noted. No renal calculi. No ureteral calculi. No pneumoperitoneum or pneumatosis. IMPRESSION: Persistent small bowel obstruction pattern. ACT 112: Negative or not required by law. Electronically signed by: Naeem Nevarez M.D. 01/10/2024 10:31 AM
--- NOTE | 2024-01-10 11:59 | Surgery Consultation ---
Date of Consultation January 10, 2024 Assessment & Plan (1) Small bowel obstruction: Clinically improving however his imaging shows persistent small bowel obstruction. I am going to let him have a little bit of clear/flavored clears but I want him to really take it easy. Will repeat KUB tomorrow. He may need a small bowel follow-through. In the meantime we are trying to get his chart from [facility] so I can see exactly what surgery he had as well as his pathology. (2) Acute dehydration: History of Present Illness Attending Physician: Marychuy Dumont MD History of Present Illness 38-year-old male admitted last night with a small bowel obstruction. He has a history of some sort of colectomy about a year ago although the details are unclear. He is unsure of his diagnosis or why he had the colectomy. He does talk with a sort of flight of ideas. He asked questions like how do I know if they totally screwed the surgery up? Is also threatening to leave AMA if we do not feed him. He states that he is feeling much better. He has no pain or nausea currently and he did empty his ileostomy bag which is certainly an improvement. He states that he has not felt well for about 4 days before coming to the hospital. Allergies Allergy/AdvReac Type Severity Reaction Status Date / Time No Known Allergies Allergy Verified 01/09/24 20:35 Home Medications Medication Instructions Recorded Confirmed Type acetaminophen 500 mg oral powder 1,000 mg PO DIRECTED PRN 01/09/24 01/09/24 History packet PAIN/FEVER budesonide 3 mg 3 mg PO DAILY PRN FLARE UP PER PT 01/09/24 01/09/24 History capsule,delayed,extended release Patient History Medical History SOB (shortness of breath) since being treated at the Emergency Room for acute colitis and having severe anemia at the time. patient did not receive any blood transfusions during inpatient stay d/t personal beliefs/requests. patient was to have repeat blood work done, has not yet had it done -- instructed patient to have ordered blood work done as soon as he can. No transfusions per cheondoism beliefs pt does not state it is due to cheondoism beliefs but states does not want "transfusions of any kind" Anemia Colitis Unintentional weight loss Chronic diarrhea Surgical History History of intestinal surgery History of appendectomy Family History Denies family history of Crohn's disease Colorectal cancer Ulcerative colitis Social History Smoking Status: Never smoker Second Hand Exposure: No; Do You Dip or Chew Tobacco: No; Hx Alcohol Use: No Hx Substance Use: No Preferred Language: [place] Communication Ability: Effective Visual Impairment: No Limitations Hearing Ability: Normal Gang Pusher Required: No Beliefs That Will Affect Care: None marital status: Single Current Living Situation: Family current occupational status: employed Feels Safe at Home: Yes Safety Concerns: Feels Safe At This Time Diet Comment: Low fiber and high protein caffeine: Yes Assistive Devices: Contacts and Glasses Review of Systems Review of Systems: All systems reviewed & are unremarkable except as noted in HPI & below Physical Exam Constitutional: WD/WN, vitals as above no acute distress and not ill appearing Eyes: PERRL, conjunctivae normal, anicteric sclerae EOM intact bilaterally ENMT: external ear and nose normal, oropharynx normal Ears: no hearing impairment Neck: trachea midline, no thyromegaly Respiratory: normal respiratory effort; no respiratory distress and does not use accessory muscles Cardiovascular: Rate/Rhythm: regular rate and regular rhythm Gastrointestinal (Abdomen): soft. stoma viable. non distended. minimal tenderness Skin: no rashes, warm and dry Psychiatric: Orientation: alert, oriented x 3 and cooperative Results & Data Vital Signs (Past 12 Hours) Vital Signs Temp Pulse Resp BP Pulse Ox O2 Del Method 01/10/24 07:23 36.5 C 80 17 110/67 99 Room Air 01/10/24 00:15 Room Air 01/10/24 00:15 36.8 C 98 H 18 136/79 97 Room Air 01/10/24 00:00 79 16 112/76 98 Room Air PG Care Time/CCT Total # of Minutes Spent Total Time Spent with Patient: Total time spent is greater than 50% in coordination of care (as documented) at patient's floor/unit and/or counseling patient: Coding Level of Care Code 70493 IN/OBS CONSULT LVL 3,45M Diagnoses Small bowel obstruction K56.609 Acute dehydration E86.0
--- NOTE | 2024-01-10 16:58 | Discharge Summary ---
Discharge Summary Date of Service January 10, 2024 Notes For Next Care Provider Medication Changes From Visit None Admission HPI Per Admitting Provider Derek Tapia is a 38yo male with history of hemorrhagic colitis, pneumoperitoneum s/p exploratory laparotomy with right colectomy and ileostomy creation performed on 01/06/23. Patient with post-operative wound dehiscence which was treated with wound care. 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 He is to follow with GI and Oncology - uncertain if he is doing either. He presents today with two days of nausea, vomiting, decreased appetite and PO intolerance. Also with watery output from his ostomy. Today he has had minimal ostomy output. He has ongoing abdominal pain and voices concern about possible obstruction. Nausea and vomiting have improved slightly. He had some chills and cold sweats over the last two days but these are improving as well. No report of chest pain, cough, SOB. No additional complaints at this time. In the ER patient was somewhat agitated at first. ER Course: Droperidol Toradol NSS Principal Dx & Hospital Course #1 = Principal Diagnosis (1) Small bowel obstruction: 38yo male with history of cecal perforation and suspected IBD s/p right hemicolectomy with ileostomy formation in Dec 2022 who has not followed back up with GI due to mistrust of medical community as a whole. Patient has Budesonide to use PRN "flares" but does not take it often. He presents with N/V, low ileostomy output, and significant abdominal pain. FOund ot be dehydrated, with WILMER, hyponatremia, and SBO on CT A/P on arrival. Was admitted, no NGT placed, given IVFs and made NPO. Pt reports he continued to drink water despite NPO order and now all symptoms are completely resolved overnight. He denies any nausea, no abd pain, and has emptied his ostomy bad which was full on numerous occasions today. He is adamant about being discharged to home and despite KUB showing persistent obstruction, I do believe he is clinically much improved and SBO is resolved He reports eating a lot of peppers and onions and high fiber foods just prior to this happening and feels it got stuck in his bowels just before the ostomy as this has happened in the past with high fiber foods. He could certainly have SBO on basis of adhesions given previous abdominal surgery for peritonitis, perforated colon. He also was found to have neuroendocrine tumor at tip of appendix on pathology but has not had follow up on this as he does not like to go to doctors. He reports when he feels abd pains and "flares" of his IBD, he takes budesonide for a few days and it gets better. He requests a refill of this medication. He denies any blood in vomit or in stool, but does get occasional BRBPR. He never wants to go on a biologic drug and is very upset that GI tried to push this treatment upon him in the past. -encouraged f/u with GI -refilled his prn budesonide -advised full liquids on discharge with gradual advancement to low fiber, stay well hydrated -gave precautions to return for worsening of symptoms -dc to home (2) Acute kidney injury: Patient dehydrated - Elevated BUN 42 and Cr of 1.55 (increased from prior values of 15 and 0.16, respectively. Also appears to be hemoconcentrated with Hgb of 16.7. Suspect dehydration from vomiting and decreased oral intake Received LR at 125mL/hr x 3L WILMER improved, desk pen set assembler down to 1.3, Na+ improved from 131 to 133 (3) Hyponatremia: 2/2 hypovolemia from dehydration, GI losses improved with IV fluids (4) IBD (inflammatory bowel disease): as above, encouraged f/u with GI previous labs show elevated calprotectin, had many months of bloody diarrhea, pancolitis, and at one point had a hgb of 5 for which he declined blood transfusion fortunately, most symptoms seem to have resolved so perhaps was UC? No formal diagnosis (5) Neuroendocrine tumor: found on pathology in appendiceal tip in 2022, no f/u known since then? recommend f/u with PCP and GI (6) Ileostomy in place: noted, functioning well now Plan Dispo-dc to home Discharge Exam Constitutional WD/WN, vitals as above Respiratory normal respiratory effort, lungs clear to auscultation Cardiovascular RRR, no murmur, no edema Gastrointestinal (Abdomen) Inspection/Auscultation: normal bowel sounds and + abdominal surgical scar (midline laparotomy); + abdomen abnormal to inspection (ileostomy bag in place with gas and liquid stool) and abdomen not distended Percussion/Palpation: abdomen soft; abdomen nontender Psychiatric Orientation: alert, oriented x 3, cooperative and + guarded Updated Medication List Medication Instructions Recorded Confirmed Type acetaminophen 500 mg oral powder 1,000 mg PO DIRECTED PRN 01/09/24 01/09/24 History packet PAIN/FEVER budesonide 3 mg 3 mg PO DAILY PRN FLARE UP OF 01/10/24 01/09/24 Rx capsule,delayed,extended release [facility]30 ea Hospital Stay Data Consultations 01/10/24 09:57 Consult General Surgery Routine Diagnostic Imagining Performed 01/09/24 19:13 CT Abd and Pelvis [CT abd pelvis IV con only] Stat Pending Results Patient Have Any Pending Studies at Discharge: No Discharge Instructions Given to Patient (Per Discharging Provider) Slowly advance your diet and monitor for return of abdominal pain, nausea/vomiting, or decreased output in your ostomy bag. Please follow up with your PCP within 1-2 weeks. I have refilled your budesonide for a 30 day supply. Total Time Total Time Spent Total Time Spent (In Minutes): 35 min Total Time Includes: Examination of the Patient, Discharge Planning, Medication Reconciliation and Communication With Other Providers (discussed care with Surgery) Coding Level of Care Code 50017 INP/OBS DISCH >30 MIN Diagnoses Small bowel obstruction K56.609 Acute kidney injury N17.9 Hyponatremia E87.1 IBD (inflammatory bowel disease) K52.9 Neuroendocrine tumor D3A.[address] Z93.2
== END 2024-01-10 17:00 | disposition home or self-care (01) ==
LOC: ED 18:57 → INTOOBSV 23:14 → 3E 23:14 → SUATTDRO 23:14 → 3E 01-10 00:07